=== PATIENT | female | born 1995 | race Two or more races ===

== ENCOUNTER 2017-11-08 07:52 | Emergency (ER) | payer MEDICAID ==
[2017-11-08 07:59] VITALS: BP 121/65
[2017-11-08] MEDS ORDERED: HYDROCODONE/ACETAMINOPHEN 5-325 MG TABLET PO ONE (08:29)
--- NOTE | 2017-11-08 08:30 | ER Document Report ---
ED Oral Problem - General Chief Complaint: Toothache Stated Complaint: TOOTH/MOUTH PAIN Time Seen by Provider: 11/08/17 08:12 Mode of Arrival: Ambulatory Information source: Patient Notes: Patient is a 21-year-old female who presents to the ER today for right lower tooth pain stating that her wisdom tooth on the right lower side is growing and cricket. Patient has a dentist appointment but has not for approximately 3 weeks she complains of some pain and swelling to this area. Patient also complains of a sore throat but is unclear if it is coming from the tooth or not. Patient states that this started yesterday and is difficult for her to swallow foods due to the pain. She denies any swelling of the throat or difficulty swallowing her saliva. She denies any fevers or chills, drainage from anywhere. TRAVEL OUTSIDE OF THE [place] IN LAST 30 DAYS: No - Related Data Allergies/Adverse Reactions: No Known Allergies Allergy (Unverified 11/08/17 07:53) Past Medical History - General Information source: Patient - Social History Smoking Status: Current Every Day Smoker Chew tobacco use (# tins/day): No Frequency of alcohol use: None Drug Abuse: None Family History: Reviewed & Not Pertinent Patient has suicidal ideation: No Patient has homicidal ideation: No Renal/ Medical History: Denies: Hx Peritoneal Dialysis Review of Systems - Review of Systems Constitutional: No symptoms reported EENT: See HPI Cardiovascular: No symptoms reported Respiratory: No symptoms reported Gastrointestinal: No symptoms reported Genitourinary: No symptoms reported Female Genitourinary: No symptoms reported Musculoskeletal: No symptoms reported Skin: No symptoms reported Hematologic/Lymphatic: No symptoms reported Neurological/Psychological: No symptoms reported Physical Exam - Vital signs Vitals: Temp Pulse Resp BP Pulse Ox 98.9 F 79 16 121/65 98 11/08/17 07:57 11/08/17 07:57 11/08/17 07:57 11/08/17 07:57 11/08/17 07:57 - Notes Notes: PHYSICAL EXAMINATION: GENERAL: Uncomfortable appearing, but in no acute distress. HEAD: Atraumatic, normocephalic. EYES: Pupils equal round and reactive to light, extraocular movements intact, sclera anicteric, conjunctiva are normal. ENT: ear canals without erythema or foreign body, TMs pearly minor with good bony landmarks, nares patent, oropharynx clear without exudates. Moist mucous membranes. Poor dentition, tenderness to lower right wisdom tooth at the gumline, mild edema surrounding, no obvious fluctuance or induration NECK: Normal range of motion, supple without lymphadenopathy LUNGS: CTAB and equal. No wheezes rales or rhonchi. HEART: Regular rate and rhythm without murmurs EXTREMITIES: Normal range of motion, no pitting edema. No cyanosis. NEUROLOGICAL: Cranial nerves grossly intact. Normal sensory/motor exams. PSYCH: Normal mood, normal affect. SKIN: Warm, Dry, normal turgor, no rashes or lesions noted Course - Re-evaluation Re-evalutation: 11/09/17 10:59 Patient started on amoxicillin and advised to follow-up with her dentist. - Vital Signs Vital signs: Temp Pulse Resp BP Pulse Ox 98.9 F 79 16 121/65 98 11/08/17 07:57 11/08/17 07:57 11/08/17 07:57 11/08/17 07:57 11/08/17 07:57 Discharge - Discharge Clinical Impression: Pain, dental Condition: Stable Disposition: HOME, SELF-CARE Additional Instructions: Return immediately for any new or worsening symptoms. Follow up with dentist, call tomorrow to make followup appointment. Prescriptions: Amoxicillin 500 mg PO TID #30 capsule Ibuprofen [Motrin 800 mg Tablet] 800 mg PO Q8H PRN #30 tab PRN Reason: Forms: Return to Work
== END 2017-11-08 08:51 | disposition home or self-care (01) ==
LOC: ER 07:52
DX: K08.89 Other specified disorders of teeth and supporting structures (principal); J02.9 Acute pharyngitis, unspecified; F17.200 Nicotine dependence, unspecified, uncomplicated
CPT/HCPCS: 99282

== ENCOUNTER 2018-06-12 13:03 | Emergency (ER) | payer MEDICAID ==
[2018-06-12 13:10] VITALS: BP 121/74
[2018-06-12] MEDS ORDERED: CYCLOBENZAPRINE HCL 10 MG TABLET PO ONE (13:41)
--- NOTE | 2018-06-12 13:47 | ER Document Report ---
ED Neck/Back Problem - General Chief Complaint: Back Pain Stated Complaint: BACK PAIN Time Seen by Provider: 06/12/18 13:18 Mode of Arrival: Ambulatory Information source: Patient Notes: 22-year-old female presented to ED for complaint of mid back pain for the last 2 years. She states she has spasms off and on and became worse yesterday. She states that there is stiffness and spasm every time she moves or lifts her child who is about 2 years old. Patient is alert oriented respirations regular and unlabored speaking in full sentences walking with a even steady gait. TRAVEL OUTSIDE OF THE [place] IN LAST 30 DAYS: No - HPI Patient complains to provider of: Pain, Upper back Onset: Other - 2 years worse for the last couple days Onset: Chronic Timing: Waxing and waning Quality of pain: Cramping Severity: Severe Pain Level: 5 Recent injury: No Associated symptoms: Like prior neck/back pain, Upper back pain. denies: Constipation, Fever, Incontinence, Radiation to arm, Radiation to chest, Radiation to leg, Sensory loss, Sweaty, Unable to urinate, Lower back pain Exacerbated by: Movement of trunk Relieved by: Nothing Similar symptoms previously: Yes Recently seen / treated by doctor: No - Related Data Allergies/Adverse Reactions: No Known Allergies Allergy (Verified 06/12/18 13:03) Past Medical History - General Information source: Patient - Social History Smoking Status: Current Every Day Smoker Cigarette use (# per day): Yes - 1/2 pack/day Chew tobacco use (# tins/day): No Smoking Education Provided: Yes - 4 minutes Frequency of alcohol use: None Drug Abuse: None Lives with: Spouse/Significant other Family History: Reviewed & Not Pertinent Patient has suicidal ideation: No Patient has homicidal ideation: No - Past Medical History Cardiac Medical History: Reports: None Pulmonary Medical History: Reports: None EENT Medical History: Reports: None Neurological Medical History: Reports: None Endocrine Medical History: Reports: None Renal/ Medical History: Reports: None Malignancy Medical History: Reports: None GI Medical History: Reports: None Musculoskeletal Medical History: Reports Hx Muscle Spasm, Reports Other - Back spasms for more than 2 years Skin Medical History: Reports None Psychiatric Medical History: Reports: None Traumatic Medical History: Reports: None Infectious Medical History: Reports: None Surgical Hx: Negative Past Surgical History: Reports: None, Hx Section Review of Systems - Review of Systems Constitutional: No symptoms reported EENT: No symptoms reported Cardiovascular: No symptoms reported Respiratory: No symptoms reported Gastrointestinal: No symptoms reported Genitourinary: No symptoms reported Female Genitourinary: No symptoms reported Musculoskeletal: Back pain, Muscle pain, Muscle stiffness Skin: No symptoms reported Hematologic/Lymphatic: No symptoms reported Neurological/Psychological: No symptoms reported -: Yes All other systems reviewed and negative Physical Exam - Vital signs Vitals: Temp Pulse Resp BP Pulse Ox 99.0 F 82 16 121/74 99 06/12/18 13:08 06/12/18 13:08 06/12/18 13:08 06/12/18 13:08 06/12/18 13:08 Interpretation: Normal - General General appearance: Appears well, Alert - HEENT Head: Normocephalic, Atraumatic Eyes: Normal Pupils: PERRL - Respiratory Respiratory status: No respiratory distress Chest status: Nontender Breath sounds: Normal Chest palpation: Normal - Cardiovascular Rhythm: Regular Heart sounds: Normal auscultation Murmur: No - Abdominal Inspection: Normal Distension: No distension Bowel sounds: Normal Tenderness: Nontender Organomegaly: No organomegaly - Back Back: Normal, Tender - Bilateral upper back pain. No: Deformity/step-off, CVA tenderness, Vertebra tenderness, Scars, Scoliosis, Wounds - Extremities General upper extremity: Normal inspection, Nontender, Normal color, Normal ROM, Normal temperature General lower extremity: Normal inspection, Nontender, Normal color, Normal ROM, Normal temperature, Normal weight bearing. No: Tia's sign - Neurological Neuro grossly intact: Yes Cognition: Normal Orientation: AAOx4 Jackson Coma Scale Eye Opening: Spontaneous Leticia Coma Scale Verbal: Oriented Leticia Coma Scale Motor: Obeys Commands Jackson Coma Scale Total: 15 Speech: Normal Motor strength normal: LUE, RUE, LLE, RLE Sensory: Normal - Psychological Associated symptoms: Normal affect, Normal mood - Skin Skin Temperature: Warm Skin Moisture: Dry Skin Color: Normal Course - Vital Signs Vital signs: Temp Pulse Resp BP Pulse Ox 99.0 F 82 16 121/74 99 06/12/18 13:08 06/12/18 13:08 06/12/18 13:08 06/12/18 13:08 06/12/18 13:08 Discharge - Discharge Clinical Impression: chronic upper back spasms, chronic lower back spasms Condition: Stable Disposition: HOME, SELF-CARE Instructions: Family Physicians / Practices Additional Instructions: Myalagia (Muscle Pain) Myalgia is pain in the muscles. We use the word myalgia to describe muscle pain where there's no history of injury, no known muscle disease, and the muscles are normal to examination. Myalgias can be a symptom of an acute illness, such as influenza, hepatitis, or any viral illness, especially with fever. Sometimes the muscle pain comes before any other symptoms. Myalgia can also be an early symptom of inflammatory muscle disease, such as lupus. If myalgia is accompanied by an acute illness that explains the muscle pain, then no further testing needs to be done. When there's no clear reason for the pain, tests may be done to see if there's an inflammatory or other disease of the muscles. The usual treatment for myalgias is anti-inflammatory medication, such as ibuprofen. Muscle aches may be soothed with a heating pad or hot compress. If muscles remain painful for more than a few days, you'll need testing and followup. Return if a muscle becomes swollen, red, or severely painful. MUSCLE RELAXERS: Muscle relaxing medications are usually prescribed for acute muscle spasm or injury to the neck and back. They are often combined with antiinflammatory pain medication for increased relief. You may stop the muscle relaxer when the pain and stiffness have improved. Start the medication again if spasms recur. Muscle relaxers may cause drowsiness, especially with the first dose. Do not operate machinery or drive while under the effects of the medication. Most muscle relaxers last up to 24 hours. Do not combine the medication with alcohol. ICE PACKS: Apply ice packs frequently against the painful area. Many different schedules are recommended, such as "20 minutes on, 20 minutes off" or "one hour ice, two hours rest." If you need to work, you may need to go longer between ice treatments. You should plan to have the area ice packed AT LEAST one fourth of the time. The ice should be applied over the wrap, tape, or splint, or over a layer of cloth -- not directly against the skin. Some ice bags have a built-in cloth and can be put directly on the skin. WARM PACKS: After approximately two days, apply gentle heat (such as a heating pad or hot water bottle) for about 20 to 30 minutes about every two hours -- at least four times daily. Warmth and elevation will help you make a more rapid recovery, and will ease the pain considerably. Do not use HOT heat, and never apply heat for longer than 30 minutes. The continuous heat can invisibly damage skin and muscles -- even when no burn is seen on the surface. Damaged muscles can make you MORE sore. Ibuprofen Ibuprofen is an excellent, safe drug for pain control. In addition, it has potent antiinflammatory effects which are beneficial, especially in the treatment of injuries, arthritis, or tendonitis. It's best to take ibuprofen with food. Persons with ulcer disease or allergy to aspirin should notify their physician of this before taking ibuprofen. Take the medication exactly as prescribed. Don't take additional doses unless instructed to do so by your doctor. If you develop wheezing, shortness of breath, hives, faintness, stomach pain, vomiting, or dark black stools, return for re-evaluation at once. Exercise Program for the Shoulder Since the shoulder moves in so many directions, the joint attachment is weak. Muscles provide most of the stability to the shoulder. You must exercise your shoulder to prevent painful instability or stiffening. PASSIVE - These may be begun within a few days of the injury. While standing, lean forward, allowing the arm to hang down towards the floor. Move the arm in small circles while slowly twisting your chest towards and away from the hanging arm. Do this for one minute. ACTIVE - These may be performed when the doctor gives permission. Begin with the arms at the sides. Raise the arms forward (shoulder's width apart) until they reach shoulder level. Then slowly swing both arms back until they are aiming straight out away from each other. Then bring them forward again, and finally, lower them to your sides. Repeat 20 to 30 times. As you improve, put weights in your hands for the exercise. Start with one pound, and work up to 10 pounds. Never use more than is comfortable. Athletes may work up to 30 pounds. Stretching Exercises for the Back The physician has recommended that you begin stretching exercises for your back. These are often used even while the back is painful. However, you should notify the physician if the activities seem to increase your pain. PELVIC TILT: Lie flat on your back with knees bent. Tighten your stomach and buttock muscles so it flattens your lower back against the floor. Hold 10 seconds. Repeat 10 times, twice daily. KNEE RAISE: Lying on the back with knees bent, raise one knee to your chest, then the other. Hold both knees against the chest 10 seconds, then lower one knee at a time. Repeat 10 times, twice daily. PARTIAL TRUNK RAISE: Lie face down, arms at your sides. Keeping your waist on the floor, use your arms raise your chest up. Support yourself on your elbows for 30 seconds. Repeat twice daily, increasing the time to two minutes as you recover. FOLLOW-UP CARE: If you have been referred to a physician for follow-up care, call the physicians office for an appointment as you were instructed or within the next two days. If you experience worsening or a significant change in your symptoms, notify the physician immediately or return to the Emergency Department at any time for re-evaluation. Prescriptions: Cyclobenzaprine HCl [Flexeril 10 mg Tablet] 10 mg PO TIDP PRN #15 tab PRN Reason: Ibuprofen [Motrin 800 mg Tablet] 800 mg PO Q8H PRN #30 tab PRN Reason: Forms: Smoking Cessation Education
== END 2018-06-12 13:50 | disposition home or self-care (01) ==
LOC: ER 13:03
DX: R25.2 Cramp and spasm (principal); M54.89 Other dorsalgia; F17.210 Nicotine dependence, cigarettes, uncomplicated; Z71.6 Tobacco abuse counseling
CPT/HCPCS: 99406; 99283; J3490

== ENCOUNTER 2018-09-17 19:48 | Emergency (ER) | payer MEDICAID ==
[2018-09-17 20:14] VITALS: BP 129/68
[2018-09-17] MEDS ORDERED: ACETAMINOPHEN 325 MG TABLET PO ONE (21:11)
--- NOTE | 2018-09-17 21:14 | ER Document Report ---
ED Medical Screen (RME) - General Chief Complaint: Abdominal Pain Stated Complaint: ABDOMINAL PAIN Time Seen by Provider: 09/17/18 21:09 Notes: 22F with no past medical history presents for epigastric/right upper quadrant pain since yesterday. Pain is worse after drinking or eating and described as sharp. She said the pain is constant but that does make it worse, nothing makes it better. She denies fevers or chills, complains of nausea with no vomiting, last bowel movement this morning. EXAM: Well-appearing, lungs clear to auscultation in all garza, regular rate and rhythm no murmurs, limited abdominal exam but right upper quadrant and epigastric tenderness to palpation I have greeted and performed a rapid initial assessment of this patient. A comprehensive ED assessment and evaluation of the patient, analysis of test results and completion of medical decision making process will be conducted by an additional ED providers. TRAVEL OUTSIDE OF THE [place] IN LAST 30 DAYS: No - Related Data Allergies/Adverse Reactions: No Known Allergies Allergy (Verified 09/17/18 21:04) Past Medical History Renal/ Medical History: Denies: Hx Peritoneal Dialysis Musculoskeltal Medical History: Reports Hx Muscle Spasm Past Surgical History: Reports: Hx Section Physical Exam - Vital signs Vitals: Temp Pulse Resp BP Pulse Ox 98.8 F 88 18 129/68 H 100 09/17/18 20:12 09/17/18 20:12 09/17/18 20:12 09/17/18 20:12 09/17/18 20:12 Course - Vital Signs Vital signs: Temp Pulse Resp BP Pulse Ox 98.8 F 88 18 129/68 H 100 09/17/18 20:12 09/17/18 20:12 09/17/18 20:12 09/17/18 20:12 09/17/18 20:12
[2018-09-17] MEDS ORDERED: LIDOCAINE 2% VISCOUS SOLN 20 ML UDCUP PO ONE (21:20)
[2018-09-17] MEDS ORDERED: METOCLOPRAMIDE HCL ORAL SOLN 10 MG/10 ML UDCUP PO ONE (21:20)
[2018-09-17] MEDS ORDERED: MAG HYDROX/AL HYDROX/SIMETH SUSP 30 ML UDCUP PO ONE (21:20)
[2018-09-17 21:51] LABS: ABSOLUTE BASOPHILS # (AUTO) 0.1 10^3/uL (0.0-0.2); ABSOLUTE EOSINOPHILS # (AUTO) 0.3 10^3/uL (0.0-0.6); ABSOLUTE MONOCYTES (AUTO) 0.6 10^3/uL (0.1-1.4); ABSOLUTE NEUT (AUTO) 4.9 10^3/uL (1.7-8.2); EOSINOPHILS % (AUTO) 3.6 % (0-6); HEMATOCRIT 40.8 % (36.0-47.0); HEMOGLOBIN 13.6 g/dL (12.0-15.5); LYMPHOCYTES % (AUTO) 33.8 % (13-45); MEAN CORPUSCULAR HEMOGLOBIN 29.8 pg (27.0-33.4); MEAN CORPUSCULAR HGB CONC 33.5 g/dL (32.0-36.0); MEAN CORPUSCULAR VOLUME 89 fl (80-97); MONOCYTES % (AUTO) 6.6 % (3-13); PLATELET COUNT 305 10^3/uL (150-450); RED BLOOD COUNT 4.58 10^6/uL (3.72-5.28); TOTAL CELLS COUNTED % (AUTO) 100 %; WHITE BLOOD COUNT 8.9 10^3/uL (4.0-10.5)
[2018-09-17 22:11] LABS: ALANINE AMINOTRANSFERASE 27 U/L (9-52); ALBUMIN 4.6 g/dL (3.5-5.0); ALKALINE PHOSPHATASE 75 U/L (38-126); ANION GAP 11 (5-19); ASPARTATE AMINO TRANSFERASE 22 U/L (14-36); BILIRUBIN,DIRECT 0.2 mg/dL (0.0-0.4); BILIRUBIN,TOTAL 0.2 mg/dL (0.2-1.3); BLOOD UREA NITROGEN 7 mg/dL (7-20); CALCIUM 9.9 mg/dL (8.4-10.2); CARBON DIOXIDE 24 mmol/L (22-30); CHLORIDE 106 mmol/L (98-107); GLUCOSE 88 mg/dL (75-110); LIPASE 69.5 U/L (23-300); POTASSIUM 4.6 mmol/L (3.6-5.0); SODIUM 140.9 mmol/L (137-145); TOTAL PROTEIN 7.4 g/dL (6.3-8.2)
[2018-09-17 22:51] LABS: APPEARANCE,URINE CLEAR; BILIRUBIN,URINE NEGATIVE (NEGATIVE); COLOR,URINE YELLOW; GLUCOSE, URINE NEGATIVE (NEGATIVE); KETONES,URINE NEGATIVE (NEGATIVE); LEUKOCYTE ESTERASE,URINE NEGATIVE (NEGATIVE); NITRITE,URINE NEGATIVE (NEGATIVE); PROTEIN,URINE NEGATIVE (NEGATIVE); URINE SPECIFIC GRAVITY 1.025; UROBILINOGEN,URINE NEGATIVE mg/dL (<2.0)
== END 2018-09-18 00:07 | disposition left against medical advice (07) ==
LOC: ER 19:48
DX: R10.13 Epigastric pain (principal); R10.11 Right upper quadrant pain
CPT/HCPCS: 99281; 36415; 83690; 85025; 81025; 80053; 81001; J3490 ×4

== ENCOUNTER 2018-09-19 04:54 | Observation (INO) | payer MEDICAID ==
[2018-09-19 06:06] LABS: ABSOLUTE BASOPHILS # (AUTO) 0.1 10^3/uL (0.0-0.2); ABSOLUTE EOSINOPHILS # (AUTO) 0.4 10^3/uL (0.0-0.6); ABSOLUTE LYMPHOCYTES (AUTO) 3.1 10^3/uL (0.5-4.7); ABSOLUTE MONOCYTES (AUTO) 0.7 10^3/uL (0.1-1.4); ABSOLUTE NEUT (AUTO) 4.6 10^3/uL (1.7-8.2); BASOPHILS % (AUTO) 0.9 % (0-2); EOSINOPHILS % (AUTO) 4.5 % (0-6); HEMATOCRIT 40.1 % (36.0-47.0); HEMOGLOBIN 13.5 g/dL (12.0-15.5); LYMPHOCYTES % (AUTO) 35.2 % (13-45); MEAN CORPUSCULAR HEMOGLOBIN 29.9 pg (27.0-33.4); MEAN CORPUSCULAR HGB CONC 33.8 g/dL (32.0-36.0); MEAN CORPUSCULAR VOLUME 88 fl (80-97); MONOCYTES % (AUTO) 7.7 % (3-13); PLATELET COUNT 285 10^3/uL (150-450); RED BLOOD COUNT 4.54 10^6/uL (3.72-5.28); SEGMENTED NEUTROPHILS % (AUTO) 51.7 % (42-78); TOTAL CELLS COUNTED % (AUTO) 100 %; WHITE BLOOD COUNT 8.9 10^3/uL (4.0-10.5)
[2018-09-19] MEDS ORDERED: FENTANYL CITRATE INJ/PF 100 MCG/2 ML AMPUL IV ONE (06:14)
[2018-09-19 06:23] LABS: ALANINE AMINOTRANSFERASE 19 U/L (9-52); ALBUMIN 4.5 g/dL (3.5-5.0); ALKALINE PHOSPHATASE 73 U/L (38-126); ANION GAP 12 (5-19); ASPARTATE AMINO TRANSFERASE 25 U/L (14-36); BILIRUBIN,DIRECT 0.2 mg/dL (0.0-0.4); BILIRUBIN,TOTAL 0.3 mg/dL (0.2-1.3); BLOOD UREA NITROGEN 6 mg/dL (7-20); CALCIUM 9.4 mg/dL (8.4-10.2); CARBON DIOXIDE 23 mmol/L (22-30); CHLORIDE 107 mmol/L (98-107); GLUCOSE 94 mg/dL (75-110); LIPASE 48.6 U/L (23-300); POTASSIUM 3.9 mmol/L (3.6-5.0); SODIUM 141.7 mmol/L (137-145); TOTAL PROTEIN 7.5 g/dL (6.3-8.2)
[2018-09-19] MEDS ORDERED: LIDOCAINE 2% VISCOUS SOLN 20 ML UDCUP PO ONE (06:24)
[2018-09-19 06:26] LABS: APPEARANCE,URINE CLEAR; BILIRUBIN,URINE NEGATIVE (NEGATIVE); COLOR,URINE YELLOW; GLUCOSE, URINE NEGATIVE (NEGATIVE); KETONES,URINE NEGATIVE (NEGATIVE); LEUKOCYTE ESTERASE,URINE NEGATIVE (NEGATIVE); NITRITE,URINE NEGATIVE (NEGATIVE); PROTEIN,URINE NEGATIVE (NEGATIVE); URINE SPECIFIC GRAVITY 1.015; UROBILINOGEN,URINE NEGATIVE mg/dL (<2.0)
--- NOTE | 2018-09-19 06:54 | RADIOLOGY REPORT (SQ) ---
EXAM DESCRIPTION: US ABDOMEN LIMITED COMPLETED DATE/TME: 09/19/2018 06:13 CLINICAL HISTORY: 22 years, Female, RUQ pa[place] COMPARISON: None. TECHNIQUE: Limited right upper quadrant ultrasound LIMITATIONS: None. FINDINGS: Echogenic appearance to the liver consistent with fatty infiltrative change. No gallstones or gallbladder wall thickening. CBD measures 1.3 mm. The visualized pancreas, abdominal aorta, right kidney are unremarkable. There is no ascites IMPRESSION: Fatty infiltrative change to the liver. Remainder is unremarkable copyright 2011 [employer]- All Rights Reserved
[2018-09-19] MEDS ORDERED: MAG HYDROX/AL HYDROX/SIMETH SUSP 30 ML UDCUP PO ONE (07:01)
--- NOTE | 2018-09-19 07:05 | ER Document Report ---
ED General - General Chief Complaint: Abdominal Pain Stated Complaint: ABDOMINAL PAIN Time Seen by Provider: 09/19/18 06:12 Notes: 22-year-old female with mild obesity presents with epigastric pain burning and pressure-like for 3 days with nausea and vomiting intermittently. The pain does not radiate. She is never had this before. She denies a history of known GERD or gallstones. She has no lower abdominal symptoms or GI or symptoms. TRAVEL OUTSIDE OF THE [place] IN LAST 30 DAYS: No - Related Data Allergies/Adverse Reactions: No Known Allergies Allergy (Verified 09/17/18 21:04) Past Medical History - Social History Smoking Status: Unknown if Ever Smoked Family History: Reviewed & Not Pertinent Patient has suicidal ideation: No Patient has homicidal ideation: No Renal/ Medical History: Denies: Hx Peritoneal Dialysis Musculoskeletal Medical History: Reports Hx Muscle Spasm Past Surgical History: Reports: Hx Section Review of Systems - Review of Systems Notes: REVIEW OF SYSTEMS GEN: Denies fever, chills, weight loss ENT: Denies sore throat, nasal discharge, ear pain EYES: Denies blurry vision, eye pain, discharge CV: Denies chest pain, palpitations, edema RESP: Denies cough, shortness of breath, wheezing GI: Pain and nausea MSK: Denies joint pain/swelling, edema, SKIN: Denies rash, skin lesions LYMPH: Denies swollen glands/lymph nodes NEURO: Denies headache, focal weakness or numbness, dizziness PSYCH: Denies depression, suicidal or homicidal ideation PHYSICAL EXAMINATION General: No acute distress, well-nourished Head: Atraumatic, normocephalic ENT: Mouth normal, oropharynx moist, no exudates or tonsillar enlargement Eyes: Conjunctiva normal, pupils equal, lids normal Neck: No JVD, supple, no guarding CVS: Normal rate, regular rhythm, no murmurs Resp: No resp distress, equal and normal breath sounds bilaterally GI: Nondistended, soft, epigastric tenderness to palpation, negative Overton sign, no rebound or guarding Ext: No deformities, no edema, normal range of motion in upper and lower ext Back: No CVA or midline TTP Skin: No rash, warm Lymphatic: No lymphadeopathy noted Neuro: Awake, alert. Face symmetric. GCS 15. Physical Exam - Vital signs Vitals: Temp Pulse Resp BP Pulse Ox 97.8 F 105 H 20 168/110 H 100 09/19/18 05:00 09/19/18 05:00 09/19/18 05:00 09/19/18 05:00 09/19/18 05:00 Course - Re-evaluation Re-evalutation: 09/19/18 07:05 Epigastric pain most concerning for gastritis and GERD. No right upper quadrant symptoms. Labs are normal. Will give GI cocktail and check right upper quadrant ultrasound to make sure there is no acute pathology there. Patient was given fentanyl and a GI cocktail and felt better. Her ultrasound shows fatty liver. Her labs are normal. She has no other scores of pain identified, is clinically improved, and [place] Her has insurance via the and her follow-up is expected to go through [facility] a few weeks. I did discuss a GERD related diet to give her proper return precautions. I have discussed with the patient there likely diagnosis, aftercare plan, follow-up plans and my usual and customary return precautions. They verbalized understanding of this. 09/19/18 08:12 - Vital Signs Vital signs: Temp Pulse Resp BP Pulse Ox 97.8 F 105 H 20 168/110 H 100 09/19/18 05:00 09/19/18 05:00 09/19/18 05:00 09/19/18 05:00 09/19/18 05:00 - Laboratory Result Diagrams: 09/19/18 05:52 09/19/18 05:52 Laboratory results interpreted by me: 09/19/18 09/19/18 05:52 06:08 BUN 6 L Urine Blood LARGE H - Diagnostic Test Radiology reviewed: Image reviewed, Reports reviewed Discharge - Discharge Clinical Impression: Fatty liver Gastritis Qualifiers: Gastritis type: unspecified gastritis Chronicity: acute Gastritis bleeding: without bleeding Qualified Code(s): K29.00 - Acute gastritis without bleeding Condition: Good Disposition: HOME, SELF-CARE Instructions: Abdominal Pain ([facility]), Gastritis ([facility]) Additional Instructions: You have some fatty liver, which is a result of diet and is reversible. Please contact your primary care regarding dietary adjustments. This may be partially why you are having abdominal pain. Prescriptions: Ondansetron HCl [Zofran 4 mg Tablet] 1 - 2 tab PO Q4H PRN #10 tablet PRN Reason: Pantoprazole Sodium [Protonix [address] Tablet] 40 mg PO QAM #30 tablet.
[2018-09-19] MEDS ORDERED: HYDROMORPHONE HCL INJ/PF 2 MG/ML AMPULE IV ONE (07:18)
--- NOTE | 2018-09-19 09:15 | RADIOLOGY REPORT (SQ) ---
EXAM DESCRIPTION: CT ABD/PELVIS WITH IV ONLY COMPLETED DATE/TIME: 09/19/2018 8:57 am REASON FOR STUDY: RLQ lozano/RUQ pain COMPARISON: None. TECHNIQUE: CT scan of the abdomen and pelvis performed using helical scanning technique with dynamic intravenous contrast injection. No oral contrast. Images reviewed with lung, soft tissue, and bone windows. Reconstructed coronal and sagittal MPR images reviewed. Delayed images for evaluation of the urinary system also acquired. All images stored on PACS. All CT scanners at this facility use dose modulation, iterative reconstruction, and/or weight based d osing when appropriate to reduce radiation dose to as low as reasonably achievable (ALARA). [facility]: Dose Right [facility]: CareDose [facility]: Dose Right [facility]: Teradose 4D [facility]: IntelliGeneScan CONTRAST TYPE AND DOSE: contrast/concentration: Isovue 350.00 mg/ml; Total Contrast Delivered: 100.0 ml; Total Saline Delivered: 70.0 ml RENAL FUNCTION: None required. The patient is less than 50 years old. RADIATION DOSE: CT Rad equipment meets quality standard of care and radiation dose reduction techniq ues were employed. CTDIvol: 15.4 - 18.7 mGy. DLP: 1845 mGy-cm.. LIMITATIONS: None. FINDINGS: LOWER CHEST: No significant findings. No nodules or infiltrates. LIVER: Normal size. No masses. No dilated ducts. SPLEEN: Normal size. No focal lesions. PANCREAS: No masses. No significant calcifications. No adjacent inflammation or peripancreatic fluid collections. Pancreatic duct not dilated. GALLBLADDER: No identified stones by CT criteria. No inflammatory changes to suggest cholecystitis. ADRENAL GLANDS: No significant masses or asymmetry. RIGHT KIDNEY AND URETER: No solid masses. There are multiple cortical defects of the right kidney hauser ggestive of prior infectious insult. No significant calcifications. No hydronephrosis or hydrouret er. LEFT KIDNEY AND URETER: No solid masses. No significant calcifications. No hydronephrosis or hydr oureter. AORTA AND VESSELS: No aneurysm. No dissection. Renal arteries, SMA, celiac without stenosis. RETROPERITONEUM: No retroperitoneal adenopathy, hemorrhage or masses. BOWEL AND PERITONEAL CAVITY: No masses or inflammatory changes. No free fluid or peritoneal masses. APPENDIX: The appendix is enlarged measuring 1.0 cm at its midportion although otherwise normal in ap pearance without evidence of adjacent inflammatory stranding, free fluid, or adenopathy. PELVIS: No mass. No free fluid. Normal bladder. ABDOMINAL WALL: No masses. No hernias. BONES: No significant or acute findings. OTHER: No other significant finding. IMPRESSION: 1. The appendix is enlarged measuring 1.0 cm at its midportion although otherwise normal in appearance without evidence of adjacent inflammatory stranding, free fluid, or adenopathy. Early developing appendicitis is not strictly excluded in the setting of acute right lower quadrant pain. Follow-up imaging at 24-48 hours may be performed if there is ongoing suspicion for appendicitis. 2. There are multiple cortical defects of the right kidney suggestive prior infectious insult. No e vidence of calculi or other urinary tract abnormality. TECHNICAL DOCUMENTATION: JOB ID: [id number] Quality ID # [id number]: Final reports with documentation of one or more dose reduction techniques (e.g., Au tomated exposure control, adjustment of the mA and/or kV according to patient size, use of iterative reconstruction technique) 2010 [employer]- All Rights Reserved Reading location - IP/workstation name: [email or web address]
[2018-09-19] MEDS ORDERED: DEXTROSE 50%-WATER 25 GM/50 ML DISP.SYRIN IV PRN ×2 (12:07)
[2018-09-19] MEDS ORDERED: GLUCAGON,HUMAN RECOMB 1 MG INJ SUBCUT PRN (12:07)
[2018-09-19] MEDS ORDERED: DEXTROSE 40% GEL 15 GM TUBE PO PRN ×2 (12:07)
--- NOTE | 2018-09-19 12:07 | PDOC H&P ---
History of Present Illness Patient complains of: Abdominal pain History of Present Illness: MALIA REYES is a 22 year old female presenting with 3-day history of epigastric abdominal pain with associated nausea. Pain is worsened with p.o. intake. She denies any prior history of this sort of pain. She denies any laurie rrhea. She has had no hematemesis no signs or symptoms of gastrointestinal bleeding. No fever. With the persistence of her pain she came into the ER. She does not complain of any specific right lower quadrant abdominal pain. Mostly in the epigastric region. Patient does have a history of pyelonephritis in the past. No hematuria currently. She is currently on the last day of her menstrual period. Past Medical History Medical History: None Renal/ Medical History: Reports: Other - History of pyelonephritis in the remote past Past Surgical History Past Surgical History: Reports: Section Social History Smoking Status: Current Every Day Smoker Frequency of Alcohol Use: Rare Hx Recreational Drug Use: No Family History Family History: Reviewed & Not Pertinent Parental Family History Reviewed: Yes Children Family History Reviewed: Yes Sibling(s) Family History Reviewed.: Yes Medication/Allergy Home Medications: Amoxicillin 500 mg PO TID #30 capsule 11/08/17 Ibuprofen [Motrin 800 mg Tablet] 800 mg PO Q8H PRN #30 tab 11/08/17 Cyclobenzaprine HCl [Flexeril 10 mg Tablet] 10 mg PO TIDP PRN #15 tab 06/12/18 Ibuprofen [Motrin 800 mg Tablet] 800 mg PO Q8H PRN #30 tab 06/12/18 Ondansetron HCl [Zofran 4 mg Tablet] 1 - 2 tab PO Q4H PRN #10 tablet 09/19/18 Pantoprazole Sodium [Protonix [address] Tablet] 40 mg PO QAM #30 tablet.dr 09/19/18 Allergies/Adverse Reactions: No Known Allergies Allergy (Verified 09/17/18 21:04) Review of Systems All systems: reviewed and no additional remarkable complaints except as stated Gastrointestinal: PRESENT: as per HPI Physical Exam Vital Signs: Temp Pulse Resp BP Pulse Ox 97.8 F 105 H 20 168/110 H 98 09/19/18 05:00 09/19/18 05:00 09/19/18 05:00 09/19/18 05:00 09/19/18 06:16 Intake & Output 09/18/18 09/19/18 09/20/18 06:59 06:59 06:59 Weight 93 kg General appearance: PRESENT: no acute distress, cooperative Neck exam: PRESENT: other - Supple with no tenderness and no masses. Respiratory exam: PRESENT: clear to auscultation caleb Cardiovascular exam: PRESENT: RRR GI/Abdominal exam: PRESENT: other - Soft, nondistended, tender in the epigastric region with no guarding. Mild right lower quadrant tenderness with deep palpation but not nearly as tender as the epigastric region. Extremities exam: PRESENT: other - No swelling and no tenderness Neurological exam: PRESENT: alert, awake Psychiatric exam: PRESENT: appropriate affect Skin exam: PRESENT: warm Results Laboratory Results: 09/19/18 05:52 09/19/18 05:52 09/19/18 09/19/18 09/19/18 05:52 05:52 06:08 WBC 8.9 RBC 4.54 Hgb 13.5 Hct 40.1 MCV 88 MCH 29.9 MCHC 33.8 RDW 13.0 Plt Count 285 Seg Neutrophils % 51.7 Lymphocytes % 35.2 Monocytes % 7.7 Eosinophils % 4.5 Basophils % 0.9 Absolute Neutrophils 4.6 Absolute Lymphocytes 3.1 Absolute Monocytes 0.7 Absolute Eosinophils 0.4 Absolute Basophils 0.1 Sodium 141.7 Potassium 3.9 Chloride 107 Carbon Dioxide 23 Anion Gap 12 BUN 6 L Creatinine 0.74 Est GFR ( Amer) > 60 Est GFR (Non-Af Amer) > 60 Glucose 94 Calcium 9.4 Total Bilirubin 0.3 AST 25 ALT 19 Alkaline Phosphatase 73 Total Protein 7.5 Albumin 4.5 Lipase 48.6 Urine Color YELLOW Urine Appearance CLEAR Urine pH 6.0 Ur Specific [place] 1.015 Urine Protein NEGATIVE Urine Glucose (UA) NEGATIVE Urine Ketones NEGATIVE Urine Blood LARGE H Urine Nitrite NEGATIVE Ur Leukocyte Esterase NEGATIVE Urine WBC (Auto) 4 Urine RBC (Auto) 19 Impressions: Abdomen Ultrasound 09/19/18 06:13 IMPRESSION: Fatty infiltrative change to the liver. Remainder is unremarkable copyright 2011 [employer]- All Rights Reserved Abdomen/Pelvis CT 09/19/18 08:20 IMPRESSION: 1. The appendix is enlarged measuring 1.0 cm at its midportion although otherwise normal in appearance without evidence of adjacent inflam matory stranding, free fluid, or adenopathy. Early developing appendicitis is not strictly excluded in the setting of acute right lower quadrant pain. Follow-up imaging at 24-48 hours may be performed if there is ongoing suspicion for appendicitis. 2. There are multiple cortical defects of the right kidney suggestive prior infectious insult. No evidence of calculi or other urinary tract abnormality. Assessment & Plan - Diagnosis (1) Abdominal pain Qualifiers: Abdominal location: epigastric Qualified Code(s): R10.13 - Epigastric pain Is this a current diagnosis for this admission?: Yes Plan: Likely gastritis but cannot exclude appendicitis. I have reviewed the CT scan with our radiologist and that she does have an appendix that measures 1 cm at the midportion but there is absolutely no inflammatory changes. She has had symptoms for 3 days and I would expect a fairly significant CT scan findings of appendicitis at this point if she had appendicitis. Furthermore she has mostly epigastric abdominal tenderness with minimal right lower quadrant tenderness even with deep palpation. I will admit the patient for observation. Make her n.p.o. and on IV fluids and on proton pump inhibitor. Will likely need an upper endoscopy to confirm diagnosis of gastritis or peptic ulcer disease during this hospital stay.
[2018-09-19] MEDS: NORMAL SALINE 1000 ML 1,000 ML IV PRN ×2 (12:31→22:19)
[2018-09-19] MEDS: PANTOPRAZOLE SODIUM 40 MG VIAL IV SCH ×2 (12:31→22:29)
[2018-09-19] MEDS: HYDROMORPHONE HCL INJ/PF 2 MG/ML AMPULE IV PRN ×2 (17:13→22:24)
[2018-09-19 18:52] LABS: ABSOLUTE BASOPHILS # (AUTO) 0.1 10^3/uL (0.0-0.2); ABSOLUTE EOSINOPHILS # (AUTO) 0.3 10^3/uL (0.0-0.6); ABSOLUTE LYMPHOCYTES (AUTO) 2.6 10^3/uL (0.5-4.7); ABSOLUTE MONOCYTES (AUTO) 0.5 10^3/uL (0.1-1.4); ABSOLUTE NEUT (AUTO) 3.9 10^3/uL (1.7-8.2); BASOPHILS % (AUTO) 1.1 % (0-2); EOSINOPHILS % (AUTO) 4.4 % (0-6); HEMATOCRIT 36.7 % (36.0-47.0); HEMOGLOBIN 12.3 g/dL (12.0-15.5); LYMPHOCYTES % (AUTO) 35.5 % (13-45); MEAN CORPUSCULAR HEMOGLOBIN 29.5 pg (27.0-33.4); MEAN CORPUSCULAR HGB CONC 33.6 g/dL (32.0-36.0); MEAN CORPUSCULAR VOLUME 88 fl (80-97); MONOCYTES % (AUTO) 6.9 % (3-13); PLATELET COUNT 249 10^3/uL (150-450); RED BLOOD COUNT 4.17 10^6/uL (3.72-5.28); RED CELL DISTRIBUTION WIDTH 12.8 % (11.5-14.0); SEGMENTED NEUTROPHILS % (AUTO) 52.1 % (42-78); TOTAL CELLS COUNTED % (AUTO) 100 %; WHITE BLOOD COUNT 7.4 10^3/uL (4.0-10.5)
--- NOTE | 2018-09-19 21:30 | PDOC PROGRESS REPORT ---
Subjective Progress Note for:: 09/19/18 Subjective:: Abdominal pain has improved. Very hungry. Reason For Visit: ABDOMINAL PAIN Physical Exam Vital Signs: Temp Pulse Resp BP Pulse Ox 98.5 F 55 L 18 97/63 L 100 09/19/18 19:17 09/19/18 19:17 09/19/18 19:17 09/19/18 19:17 09/19/18 19:17 Intake & Output 09/18/18 09/19/18 09/20/18 06:59 06:59 06:59 Intake Total 294 Balance 294 Weight 93 kg 93 kg General appearance: PRESENT: no acute distress, cooperative Respiratory exam: PRESENT: clear to auscultation caleb Cardiovascular exam: PRESENT: RRR GI/Abdominal exam: PRESENT: other - Soft, nondistended, mild diffuse abdominal tenderness to palpation without peritoneal signs. Results Laboratory Results: 09/19/18 18:18 09/19/18 05:52 09/19/18 09/19/18 09/19/18 05:52 05:52 05:52 WBC 8.9 RBC 4.54 Hgb 13.5 Hct 40.1 MCV 88 MCH 29.9 MCHC 33.8 RDW 13.0 Plt Count 285 Seg Neutrophils % 51.7 Lymphocytes % 35.2 Monocytes % 7.7 Eosinophils % 4.5 Basophils % 0.9 Absolute Neutrophils 4.6 Absolute Lymphocytes 3.1 Absolute Monocytes 0.7 Absolute Eosinophils 0.4 Absolute Basophils 0.1 Sodium 141.7 Potassium 3.9 Chloride 107 Carbon Dioxide 23 Anion Gap 12 BUN 6 L Creatinine 0.74 Est GFR ( Amer) > 60 Est GFR (Non-Af Amer) > 60 Glucose 94 Calcium 9.4 Total Bilirubin 0.3 AST 25 ALT 19 Alkaline Phosphatase 73 Total Protein 7.5 Albumin 4.5 Lipase 48.6 Serum HCG, Qual NEGATIVE Urine Color Urine Appearance Urine pH Ur Specific Anza Urine Protein Urine Glucose (UA) Urine Ketones Urine Blood Urine Nitrite Ur Leukocyte Esterase Urine WBC (Auto) Urine RBC (Auto) 09/19/18 09/19/18 06:08 18:18 WBC 7.4 RBC 4.17 Hgb 12.3 Hct 36.7 MCV 88 MCH 29.5 MCHC 33.6 RDW 12.8 Plt Count 249 Seg Neutrophils % 52.1 Lymphocytes % 35.5 Monocytes % 6.9 Eosinophils % 4.4 Basophils % 1.1 Absolute Neutrophils 3.9 Absolute Lymphocytes 2.6 Absolute Monocytes 0.5 Absolute Eosinophils 0.3 Absolute Basophils 0.1 Sodium Potassium Chloride Carbon Dioxide Anion Gap BUN Creatinine Est GFR ( Amer) Est GFR (Non-Af Amer) Glucose Calcium Total Bilirubin AST ALT Alkaline Phosphatase Total Protein Albumin Lipase Serum HCG, Qual Urine Color YELLOW Urine Appearance CLEAR Urine pH 6.0 Ur Specific [place] 1.015 Urine Protein NEGATIVE Urine Glucose (UA) NEGATIVE Urine Ketones NEGATIVE Urine Blood LARGE H Urine Nitrite NEGATIVE Ur Leukocyte Esterase NEGATIVE Urine WBC (Auto) 4 Urine RBC (Auto) 19 Impressions: Abdomen Ultrasound 09/19/18 06:13 IMPRESSION: Fatty infiltrative change to the liver. Remainder is unremarkable copyright 2011 [employer]- All Rights Reserved Abdomen/Pelvis CT 09/19/18 08:20 IMPRESSION: 1. The appendix is enlarged measuring 1.0 cm at its midportion although otherwise normal in appearance without evidence of adjacent inflammatory stranding, free fluid, or adenopathy. Early developing appendicitis is not strictly excluded in the setting of acute right lower quadrant pain. Follow-up imaging at 24-48 hours may be performed if there is ongoing suspicion for appendicitis. 2. There are multiple cortical defects of the right kidney suggestive prior infectious insult. No evidence of calculi or other urinary tract abnormality. Assessment & Plan - Diagnosis (1) Abdominal pain Qualifiers: Abdominal location: epigastric Qualified Code(s): R10.13 - Epigastric pain Is this a current diagnosis for this admission?: Yes Plan: Still having some abdominal pain and abdominal tenderness and I cannot entirely exclude appendicitis but appears unlikely with normal white blood cell count and no progression of her symptoms although she still has some tenderness. Will reexamine in the morning.
[2018-09-20] MEDS: HYDROMORPHONE HCL INJ/PF 2 MG/ML AMPULE IV PRN ×3 (05:14→23:21)
[2018-09-20 06:17] LABS: HEMATOCRIT 37.8 % (36.0-47.0); HEMOGLOBIN 12.8 g/dL (12.0-15.5); MEAN CORPUSCULAR HEMOGLOBIN 29.7 pg (27.0-33.4); MEAN CORPUSCULAR HGB CONC 33.8 g/dL (32.0-36.0); MEAN CORPUSCULAR VOLUME 88 fl (80-97); PLATELET COUNT 201 10^3/uL (150-450); RED BLOOD COUNT 4.31 10^6/uL (3.72-5.28); RED CELL DISTRIBUTION WIDTH 12.8 % (11.5-14.0); WHITE BLOOD COUNT 6.4 10^3/uL (4.0-10.5)
[2018-09-20 06:33] LABS: ANION GAP 11 (5-19); BLOOD UREA NITROGEN 6 mg/dL (7-20); CALCIUM 8.8 mg/dL (8.4-10.2); CARBON DIOXIDE 21 mmol/L (22-30); CHLORIDE 108 mmol/L (98-107); GLUCOSE 70 mg/dL (75-110); POTASSIUM 4.2 mmol/L (3.6-5.0)
[2018-09-20] MEDS ORDERED: MIDAZOLAM 2 MG/2 ML INJ ONE (08:32)
[2018-09-20] MEDS: NORMAL SALINE 1000 ML 1,000 ML IV PRN ×2 (08:32→15:39)
[2018-09-20] MEDS ORDERED: HYDROMORPHONE HCL INJ/PF 2 MG/ML AMPULE ONE (08:32)
[2018-09-20] MEDS ORDERED: PROPOFOL INJ 200 MG/20 ML VIAL IV ONE (08:32)
[2018-09-20] MEDS ORDERED: FENTANYL CITRATE INJ/PF 250 MCG/5 ML AMPULE ONE (08:32)
[2018-09-20] MEDS ORDERED: BUPIVACAINE HCL 0.25 % INJ/PF (2.5 MG/1 ML) 30 ML VIAL ONE (08:49)
[2018-09-20] MEDS ORDERED: PIPERACILLIN SODIUM/TAZOBACTAM 3.375 GM in NORMAL SALINE 100 ML IV ONE (09:30)
[2018-09-20] MEDS: PANTOPRAZOLE SODIUM 40 MG VIAL IV SCH ×2 (09:39→23:06)
[2018-09-20] MEDS ORDERED: DIPHENHYDRAMINE HCL 50 MG/ML VIAL IV PRN (09:42)
[2018-09-20] MEDS ORDERED: MORPHINE SULFATE 10 MG/ML INJ IV PRN (09:42)
[2018-09-20] MEDS ORDERED: MEPERIDINE HCL/PF INJ 25 MG/1 ML DISP.SYRIN IV PRN (09:42)
[2018-09-20] MEDS ORDERED: FENTANYL CITRATE INJ/PF 100 MCG/2 ML AMPUL IV PRN ×3 (09:42)
[2018-09-20] MEDS ORDERED: PROMETHAZINE HCL INJ 25 MG/1 ML VIAL IV PRN (09:42)
--- NOTE | 2018-09-20 10:50 | OPERATIVE REPORT E ---
Operative Report NAME: MALIA REYES : 1995 AGE: 22Y DATE OF SURGERY: 09/20/2018 ROOM: 534 PREOPERATIVE DIAGNOSIS: Acute appendicitis. POSTOPERATIVE DIAGNOSIS: Acute appendicitis with adhesions. OPERATION: 1. Laparoscopic appendectomy. 2. Laparoscopic lysis of adhesions. SURGEON: VILMA SELF M.D. ANESTHESIA: General. INDICATIONS: This is a 22-year-old female complaining of abdominal pains in primarily the epigastric area on admission. DESCRIPTION OF PROCEDURE: After adequate general anesthesia, the patient was placed in a supine position and the abdomen prepped and draped in the usual sterile fashion. Appropriate time out was then called. Next, an infraumbilical incision was then made and the fascia divided. The Iain trocar was inserted through the fascia to the abdominal cavity and CO2 insufflated to a pressure of 15 mmHg. The camera was then inserted and two other trocars were placed, a 5 mm in the suprapubic and a 12 mm in the left lower quadrant, under direct vision with the camera. Next, the appendix was then identified and noted to be just mildly inflamed close to the distal end. She has an adhesive band just below and lateral to the umbilicus. Next, the appendix was then lifted up and the mesoappendix divided with the harmonic nikki. The patient appendix was then divided with the EndoGIA 30 mm. The appendix was noted to be just slightly enlarged and inflamed. It was then placed in an Endobag and pulled out through the umbilical port. The appendiceal stump was noted to be dry. Next, the adhesion was subsequently grasped and pulled down and subsequently divided with the use of harmonic nikki close to the peritoneum. Again, adequate hemostasis was noted. No other adhesions were noted. No other abnormalities were noted. All the trocars were allowed to come out and all the CO2 allowed to come out through the trocar sites. The infraumbilical fascia defect was then closed with a [id number] suture using 0 Vicryl and the 2 stay sutures that were placed earlier were tied over each other over the fascial defect for better closure. Next, anesthesia was infiltrated along the fascia. All the skin incisions were then closed with running subcuticular closure using 4-0 Vicryl undyed. Sterile dressings were placed over the operative sites. Needle, instrument, and sponge counts were all correct. The patient tolerated the procedure well. Estimated blood loss was no more than 10 mL. The patient was brought to the recovery room, extubated, in satisfactory condition. DICTATING PHYSICIAN: VILMA SELF M.D. [id number] PHY#: [id number] ID: [id number] JOB#: [id number] ACCT: [id number] cc:VILMA SELF M.D. >
[2018-09-20] MEDS ORDERED: FENTANYL CITRATE INJ/PF 100 MCG/2 ML AMPUL ONE (10:59)
[2018-09-20] MEDS ORDERED: TRAMADOL HCL 50 MG TABLET PO PRN (12:49)
[2018-09-20] MEDS ORDERED: ONDANSETRON HCL INJ/PF 4 MG/2 ML SDV IV PRN (12:50)
[2018-09-20] MEDS ORDERED: GLYCOPYRROLATE 1 MG/5 ML SYRINGE ONE (15:23)
[2018-09-20] MEDS ORDERED: DEXAMETHASONE SOD PHOSPHATE INJ 4 MG/1 ML VIAL ONE (15:23)
[2018-09-20] MEDS ORDERED: NEOSTIGMINE METHYLSULFATE 10 MG/10 ML VIAL ONE (15:23)
[2018-09-20] MEDS ORDERED: SUCCINYLCHOLINE CHLORIDE INJ 200 MG/10 ML VIAL ONE (15:23)
[2018-09-20] MEDS ORDERED: ROCURONIUM BROMIDE INJ 50 MG/5 ML VIAL IV ONE (15:23)
[2018-09-20] MEDS ORDERED: ONDANSETRON HCL INJ/PF 4 MG/2 ML SDV ONE (15:23)
[2018-09-20] MEDS: PIPERACILLIN SODIUM/TAZOBACTAM 3.375 GM in NORMAL SALINE 100 ML IV SCH ×2 (15:39→23:07)
[2018-09-20] MEDS: DIPHENHYDRAMINE HCL 50 MG/ML VIAL IV PRN (16:12)
[2018-09-20] MEDS: KETOROLAC TROMETHAMINE INJ/PF 30 MG/1 ML SDV IV SCH ×2 (17:39)
[2018-09-21] MEDS: PIPERACILLIN SODIUM/TAZOBACTAM 3.375 GM in NORMAL SALINE 100 ML IV SCH ×2 (03:28→09:59)
[2018-09-21] MEDS: HYDROMORPHONE HCL INJ/PF 2 MG/ML AMPULE IV PRN (03:29)
[2018-09-21 04:31] LABS: ABSOLUTE BASOPHILS # (AUTO) 0.1 10^3/uL (0.0-0.2); ABSOLUTE EOSINOPHILS # (AUTO) 0.1 10^3/uL (0.0-0.6); ABSOLUTE MONOCYTES (AUTO) 0.7 10^3/uL (0.1-1.4); ABSOLUTE NEUT (AUTO) 8.5 10^3/uL (1.7-8.2); BASOPHILS % (AUTO) 0.5 % (0-2); EOSINOPHILS % (AUTO) 0.8 % (0-6); HEMATOCRIT 34.3 % (36.0-47.0); HEMOGLOBIN 11.4 g/dL (12.0-15.5); LYMPHOCYTES % (AUTO) 17.9 % (13-45); MEAN CORPUSCULAR HEMOGLOBIN 29.2 pg (27.0-33.4); MEAN CORPUSCULAR HGB CONC 33.3 g/dL (32.0-36.0); MEAN CORPUSCULAR VOLUME 88 fl (80-97); MONOCYTES % (AUTO) 6.4 % (3-13); PLATELET COUNT 253 10^3/uL (150-450); RED BLOOD COUNT 3.91 10^6/uL (3.72-5.28); RED CELL DISTRIBUTION WIDTH 12.9 % (11.5-14.0); SEGMENTED NEUTROPHILS % (AUTO) 74.4 % (42-78); TOTAL CELLS COUNTED % (AUTO) 100 %; WHITE BLOOD COUNT 11.4 10^3/uL (4.0-10.5)
[2018-09-21] MEDS: DIPHENHYDRAMINE HCL 50 MG/ML VIAL IV PRN (06:52)
[2018-09-21] MEDS: KETOROLAC TROMETHAMINE INJ/PF 30 MG/1 ML SDV IV SCH (06:53)
[2018-09-21] MEDS: PANTOPRAZOLE SODIUM 40 MG VIAL IV SCH (09:59)
[2018-09-21 10:08] VITALS: BP 123/41
--- NOTE | 2018-09-21 16:50 | DISCHARGE SUMMARY E ---
Discharge Summary NAME: MALIA REYES : 1995 AGE: 22Y ADMITTED: 09/19/2018 DISCHARGED: 09/21/2018 FINAL DIAGNOSIS: Early Acute Appendicitis Peritoneal Adhesion PROCEDURES: Laparoscopic appendectomy and laparoscopic lysis of adhesions, 09/20/2018. Surgeon: Lexa Callejas MD HOSPITAL COURSE: This is a 22-year-old female complaining of upper abdominal pains. She was admitted on 09/19/2018 and had a CAT scan, which showed dilated appendix, but no definite acute appendicitis. On 09/20/2018, patient noted to have tenderness more in both lower quadrants. Because of the possibility of acute appendicitis, patient was taken to the operating room for laparoscopic appendectomy. She was found to have a likely early acute appendicitis with an adhesive band just below the left side of the umbilicus. Appendectomy was carried out, as well as lysis of this adhesions. Postoperatively, patient did very well. She was able to tolerate a regular diet on 09/21/2018 and also her pains are minimal. She said her original pains have subsided and now just has some incisional pains. She was then discharged improved, to be followed up in the surgical clinic in 2 weeks. She was advised not to do lifting more than 10 pounds for the next 2 weeks. She can just take Tylenol as needed p.r.n. for pain. She can shower. DICTATING PHYSICIAN: LEXA CALLEJAS M.D. [id number] PHY#: [id number] ID: [id number] JOB#: [id number] ACCT: [id number] cc:Teresa GALINDO M.D. > MTDD
== END 2018-09-21 10:20 | disposition home or self-care (01) ==
LOC: ER 04:54 → EH 11:08 → INTOOBSV 11:08 → 5 15:14
PROVIDERS: ADMIT Surgery; ATTEND Surgery
PROC: 0DTJ4ZZ Resection of Appendix, Percutaneous Endoscopic Approach (ICD-10-PCS; principal; 2018-09-20 09:00)
DX: K35.80 Unspecified acute appendicitis (principal); K66.0 Peritoneal adhesions (postprocedural) (postinfection); F17.200 Nicotine dependence, unspecified, uncomplicated; K76.0 Fatty (change of) liver, not elsewhere classified; E66.9 Obesity, unspecified; Z87.448 Personal history of other diseases of urinary system
CPT/HCPCS: 99285; 96374; 96375; 36415 ×3; 83690; 84703; 85025 ×2; 85027; 80048; 80053; 81001; 88304 ×2; 76705; 74177; 44970; G0378 ×4; J2250; J3490 ×5; J1100; J1200 ×2; J3010 ×3; J1885 ×2; J2710; J1170 ×3; S0164 ×2; J0330; J2405; S0020; J7050 ×2; J7030 ×2; J2704; J2543 ×2; 840

== ENCOUNTER 2019-11-30 13:15 | Emergency (ER) | payer MEDICAID, OTHER ==
--- NOTE | 2019-11-30 13:49 | ER Document Report ---
ED Medical Screen (RME) - General Chief Complaint: Vaginal Bleeding Stated Complaint: ABDOMINAL PAIN,VAGINAL BLEEDING Time Seen by Provider: 11/30/19 13:46 Mode of Arrival: Ambulatory Information source: Patient Notes: 23-year-old female presents to ED for vaginal bleeding. She states her last menstrual period was October 15. She is 4 para 1. She did have her appendix taken out last year. She states she had an ectopic when she was 13 or 14. She has had a . She is alert oriented respirations regular nonlabored speaking in full sentences. She does use a drill cigarette. I have greeted and performed a rapid initial assessment of this patient. A comprehensive ED assessment and evaluation of the patient, analysis of test results and completion of medical decision making process will be conducted by an additional ED providers. TRAVEL OUTSIDE OF THE [place] IN LAST 30 DAYS: No - Related Data Allergies/Adverse Reactions: No Known Allergies Allergy (Verified 09/17/18 21:04) Home Medications: prenantal, iron supp. Past Medical History - Social History Frequency of alcohol use: None Drug Abuse: None Renal/ Medical History: Denies: Hx Peritoneal Dialysis Musculoskeltal Medical History: Reports Hx Muscle Spasm Past Surgical History: Reports: Hx Appendectomy, Hx Section, Hx Gy necologic Surgery - ectopic Physical Exam - Vital signs Vitals: Temp Pulse Resp BP Pulse Ox 99.6 F 107 H 20 143/71 H 100 11/30/19 13:20 11/30/19 13:20 11/30/19 13:20 11/30/19 13:20 11/30/19 13:20 Course - Vital Signs Vital signs: Temp Pulse Resp BP Pulse Ox 99.6 F 107 H 20 143/71 H 100 11/30/19 13:20 11/30/19 13:20 11/30/19 13:20 11/30/19 13:20 11/30/19 13:20
[2019-11-30 14:48] LABS: APPEARANCE,URINE CLEAR; BILIRUBIN,URINE NEGATIVE (NEGATIVE); COLOR,URINE YELLOW; GLUCOSE, URINE NEGATIVE (NEGATIVE); KETONES,URINE NEGATIVE (NEGATIVE); LEUKOCYTE ESTERASE,URINE NEGATIVE (NEGATIVE); NITRITE,URINE NEGATIVE (NEGATIVE); PROTEIN,URINE NEGATIVE (NEGATIVE); URINE SPECIFIC GRAVITY 1.009; UROBILINOGEN,URINE NEGATIVE mg/dL (<2.0)
--- NOTE | 2019-11-30 15:09 | RADIOLOGY REPORT (SQ) ---
EXAM DESCRIPTION: U/S OB TRANSVAGINAL W/O DOP IMAGES COMPLETED DATE/TIME: 11/30/2019 2:55 pm REASON FOR STUDY: Early with bleeding lmp October 15 COMPARISON: None. TECHNIQUE: Transvaginal static and realtime grayscale images acquired of the pelvis. Additional kasie cted spectral and color Doppler images recorded. All images stored on PACs. CLINICAL AGE: 6 weeks 3 days BHCG: Not available. LIMITATIONS: None. FINDINGS: UTERUS: No visualized intrauterine . RIGHT ADNEXA: Normal ovary with normal vascular flow. No adnexal free fluid. No adnexal masses. LEFT ADNEXA: Normal ovary with normal vascular flow. No adnexal free fluid. No adnexal masses. FREE FLUID: None. OTHER: No other significant finding. IMPRESSION: NO VISUALIZED INTRA- OR EXTRAUTERINE . bHCG LEVEL NOT AVAILABLE FOR CORRELATION WITH US FINDINGS. ECTOPIC CANNOT BE EXCLUDED. FOLLOW-UP ULTRASOUND AND SERIAL BHCG LEVELS STRONGLY RECOMMENDED TO ACCURATELY ASSESS STATU S. TECHNICAL DOCUMENTATION: JOB ID: [id number] 2010 [employer]- All Rights Reserved Reading location - IP/workstation name: [email or web address]
[2019-11-30 15:13] LABS: ABSOLUTE BASOPHILS # (AUTO) 0.1 10^3/uL (0.0-0.2); ABSOLUTE EOSINOPHILS # (AUTO) 0.4 10^3/uL (0.0-0.6); ABSOLUTE LYMPHOCYTES (AUTO) 2.1 10^3/uL (0.5-4.7); ABSOLUTE MONOCYTES (AUTO) 0.7 10^3/uL (0.1-1.4); ABSOLUTE NEUT (AUTO) 6.9 10^3/uL (1.7-8.2); BASOPHILS % (AUTO) 0.9 % (0-2); EOSINOPHILS % (AUTO) 3.7 % (0-6); HEMATOCRIT 41.7 % (36.0-47.0); MEAN CORPUSCULAR HEMOGLOBIN 30.4 pg (27.0-33.4); MEAN CORPUSCULAR HGB CONC 33.6 g/dL (32.0-36.0); MEAN CORPUSCULAR VOLUME 90 fl (80-97); MONOCYTES % (AUTO) 6.8 % (3-13); PLATELET COUNT 281 10^3/uL (150-450); RED BLOOD COUNT 4.61 10^6/uL (3.72-5.28); RED CELL DISTRIBUTION WIDTH 13.7 % (11.5-14.0); SEGMENTED NEUTROPHILS % (AUTO) 67.6 % (42-78); TOTAL CELLS COUNTED % (AUTO) 100 %; WHITE BLOOD COUNT 10.1 10^3/uL (4.0-10.5)
[2019-11-30 15:38] LABS: ALBUMIN 4.5 g/dL (3.5-5.0); ALKALINE PHOSPHATASE 69 U/L (38-126); ANION GAP 10 (5-19); ASPARTATE AMINO TRANSFERASE 24 U/L (14-36); BILIRUBIN,TOTAL 0.2 mg/dL (0.2-1.3); BLOOD UREA NITROGEN 7 mg/dL (7-20); CALCIUM 9.1 mg/dL (8.4-10.2); CARBON DIOXIDE 22 mmol/L (22-30); CHLORIDE 103 mmol/L (98-107); GLUCOSE 86 mg/dL (75-110); POTASSIUM 4.2 mmol/L (3.6-5.0); TOTAL PROTEIN 7.5 g/dL (6.3-8.2)
--- NOTE | 2019-11-30 16:08 | ER Document Report ---
ED General - General Chief Complaint: Vaginal Bleeding Stated Complaint: ABDOMINAL PAIN,VAGINAL BLEEDING Time Seen by Provider: 11/30/19 13:46 Mode of Arrival: Ambulatory Notes: Patient is a 23-year-old female who is G4, P1, currently unknown week of gestation who has had one prior ectopic around 13 or 14 years old and 1 miscarriage in the past who presents to the emergency department chief complaint of vaginal bleeding and cramping. She states that her last normal menstrual period was October 15. She states that Evelyn had intercourse last on 06 November. States that she started to have some scant spotting but did not think much of it. She states that just recently it increased slightly but has resolved again. She states it was associated with some mild cramping infraumbilical area. She was concerned given her history of ectopic so she decided to come for evaluation. She has not had any care yet. She is taking vitamins. TRAVEL OUTSIDE OF THE [place] IN LAST 30 DAYS: No - Related Data Allergies/Adverse Reactions: No Known Allergies Allergy (Verified 09/17/18 21:04) Home Medications: prenantal, iron supp. Past Medical History - General Information source: Patient - Social History Smoking Status: Never Smoker Frequency of alcohol use: None Drug Abuse: None Family History: Reviewed & Not Pertinent Renal/ Medical History: Denies: Hx Peritoneal Dialysis Musculoskeletal Medical History: Reports Hx Muscle Spasm Past Surgical History: Reports: Hx Appendectomy, Hx Section, Hx Gynecologic Surgery - ectopic Review of Systems - Review of Systems Constitutional: denies: Fever EENT: denies: Throat pain Cardiovascular: denies: Chest pain Respiratory: denies: Short of breath Gastrointestinal: denies: Abdomen distended, Abdominal pain Genitourinary: denies: Pain Female Genitourinary: , Vaginal bleeding Musculoskeletal: denies: Back pain Skin: denies: Change in color Hematologic/Lymphatic: denies: Easy bleeding Neurological/Psychological: denies: Headaches Physical Exam - Vital signs Vitals: Temp Pulse Resp BP Pulse Ox 99.6 F 107 H 20 143/71 H 100 11/30/19 13:20 11/30/19 13:20 11/30/19 13:20 11/30/19 13:20 11/30/19 13:20 - General General appearance: Appears well, Alert In distress: None - Respiratory Respiratory status: No respiratory distress Chest status: Nontender Breath sounds: Normal Chest palpation: Normal - Cardiovascular Rhythm: Regular Heart sounds: Normal auscultation - Abdominal Inspection: Normal Distension: No distension Bowel sounds: Normal Tenderness: Nontender Organomegaly: No organomegaly - Back Back: No: CVA tenderness - Neurological Neuro grossly intact: Yes Cognition: Normal Orientation: AAOx4 - Psychological Associated symptoms: Normal affect, Normal mood - Skin Skin Temperature: Warm Skin Moisture: Dry Skin Color: Normal Course - Re-evaluation Re-evalutation: 11/30/19 16:09 Patient with a quant hCG of 625. Consistent with very early versus p oorly developing or ectopic. It is too early to tell at this point. The ultrasound was inconclusive which we would expect at these numbers. Patient has a small finding consistent with UTI on urinalysis. She will be treated with Macrobid. She will follow-up in 48 hours here for repeat hCG testing and reevaluation. Given her history of ectopic discussed the importance of her returning sooner should she have any worsening bleeding or pain. Discussed the importance of follow-up with the FINISH MACHINE TENDER for appropriate care. She verbalized understood and agreed. - Vital Signs Vital signs: Temp Pulse Resp BP Pulse Ox 99.6 F 107 H 20 143/71 H 100 11/30/19 13:20 11/30/19 13:20 11/30/19 13:20 11/30/19 13:20 11/30/19 13:20 - Laboratory Result Diagrams: 11/30/19 15:03 11/30/19 15:03 Laboratory results interpreted by me: 11/30/19 11/30/19 14:18 15:03 Sodium 135.2 L Beta HCG, Quant 625.08 H Urine Blood LARGE H Urine Ascorbic Acid 20 H Discharge - Discharge Clinical Impression: Vaginal bleeding Qualifiers: Weeks of gestation: less than 8 weeks Qualified Code(s): Z3A.01 - Less than 8 weeks gestation of UTI (urinary tract infection) Qualifiers: Urinary tract infection type: site unspecified Hematuria presence: without hematuria Qualified Code(s): N39.0 - Urinary tract infection, site not specified Condition: Stable Disposition: HOME, SELF-CARE Instructions: ([facility]) Additional Instructions: At this point it is unclear if you are in the process of miscarrying, with early ectopic or with an early normal healthy . Please return here in 48 hours for repeat level testing. Please return here sooner should you develop any new or worsening symptoms. Be sure to follow-up with the FINISH MACHINE TENDER for continued care. Prescriptions: Nitrofurantoin Monohyd/M-Cryst [Macrobid 100 mg Capsule] 100 mg PO BID #20 cap
[2019-11-30 16:09] VITALS: BP 136/74
== END 2019-11-30 16:12 | disposition home or self-care (01) ==
LOC: ER 13:15
DX: O46.91 Antepartum hemorrhage, unspecified, first trimester (principal); O23.41 Unspecified infection of urinary tract in pregnancy, first trimester; O26.891 Other specified pregnancy related conditions, first trimester; R10.33 Periumbilical pain; Z3A.01 Less than 8 weeks gestation of pregnancy; Z79.899 Other long term (current) drug therapy
CPT/HCPCS: 36415; 76817; 80053; 81001; 84702; 85025; 86900; 86901; 87086; 99284

== ENCOUNTER 2019-12-02 13:46 | Emergency (ER) | payer OTHER ==
[2019-12-02 13:50] VITALS: BP 128/66
--- NOTE | 2019-12-02 14:09 | ER Document Report ---
ED GI/ - General Chief Complaint: Other Stated Complaint: REPEAT LABS Time Seen by Provider: 12/02/19 14:01 Primary Care Provider: [facility] [Provider Group] - Follow up as needed Mode of Arrival: Ambulatory Information source: Patient Notes: 23-year-old female presented to ED for repeat hCG. She was seen here 2 days ago with a low hCG and no visible on ultrasound. She is a of blood type and did not receive her RhoGam on her last visit. I have reordered the work-up so she can get at this visit. We will recheck the hCG level. TRAVEL OUTSIDE OF THE [place] IN LAST 30 DAYS: No - HPI Patient complains to provider of: Vaginal bleeding Onset: Other Timing/Duration: Gradual Quality of pain: No pain Severity in ED: None Pain Level: Denies Vaginal bleeding (Compared to normal period): Similar Rh factor: neg Associated symptoms: Other - Patient was seen 2 days ago with a negative ultrasound with negative Rh factor but did not receive the RhoGam return today for repeat hCG levels. They have dropped from 2 days ago. She is continuing to have vaginal bleeding Exacerbated by: Denies Relieved by: Denies Similar symptoms previously: Yes Recently seen / treated by doctor: Yes - Related Data Allergies/Adverse Reactions: No Known Allergies Allergy (Verified 09/17/18 21:04) Past Medical History - General Information source: Patient - Social History Smoking Status: Never Smoker Lives with: Family Family History: Reviewed & Not Pertinent Patient has suicidal ideation: No Patient has homicidal ideation: No - Past Medical History Cardiac Medical History: Reports: None Pulmonary Medical History: Reports: None EENT Medical History: Reports: None Neurological Medical History: Reports: None Endocrine Medical History: Reports: None Renal/ Medical History: Reports: None Malignancy Medical History: Reports: None GI Medical History: Reports: None Musculoskeletal Medical History: Reports Hx Muscle Spasm Skin Medical History: Reports None Psychiatric Medical History: Reports: None Traumatic Medical History: Reports: None Infectious Medical History: Reports: None Past Surgical History: Reports: Hx Appendectomy, Hx Section, Hx Gynecologic Surgery - ectopic - Immunizations Immunizations up to date: Yes Review of Systems - Review of Systems Constitutional: No symptoms reported EENT: No symptoms reported Cardiovascular: No symptoms reported Respiratory: No symptoms reported Gastrointestinal: No symptoms reported Genitourinary: No symptoms reported Female Genitourinary: No symptoms reported, Vaginal bleeding - hCG did drop Musculoskeletal: No symptoms reported Skin: No symptoms reported Hematologic/Lymphatic: No symptoms reported Neurological/Psychological: No symptoms reported -: Yes All other systems reviewed and negative Physical Exam - Vital signs Vitals: Temp Pulse Resp BP Pulse Ox 98.7 F 106 H 16 128/66 H 99 12/02/19 13:50 12/02/19 13:50 12/02/19 13:50 12/02/19 13:50 12/02/19 13:50 Interpretation: Normal - General General appearance: Appears well, Alert - HEENT Head: Normocephalic, Atraumatic Eyes: Normal Pupils: PERRL - Respiratory Respiratory status: No respiratory distress Chest status: Nontender Breath sounds: Normal Chest palpation: Normal - Cardiovascular Rhythm: Regular Heart sounds: Normal auscultation Murmur: No - Abdominal Inspection: Normal Distension: No distension Bowel sounds: Normal Tenderness: Nontender Organomegaly: No organomegaly - Back Back: Normal, Nontender - Extremities General upper extremity: Normal inspection, Nontender, Normal color, Normal ROM, Normal temperature General lower extremity: Normal inspection, Nontender, Normal color, Normal ROM, Normal temperature, Normal weight bearing. No: Tia's sign - Neurological Neuro grossly intact: Yes Cognition: Normal Orientation: AAOx4 [place] Coma Scale Eye Opening: Spontaneous [place]icia Coma Scale Verbal: Oriented [place] Coma Scale Motor: Obeys Commands Leticia Coma Scale Total: 15 Speech: Normal Motor strength normal: LUE, RUE, LLE, RLE Sensory: Normal - Psychological Associated symptoms: Normal affect, Normal mood - Skin Skin Temperature: Warm Skin Moisture: Dry Skin Color: Normal Course - Re-evaluation Re-evalutation: 12/02/19 16:25 Patient was treated with RhoGam due to her negative blood type with vaginal bleeding and . The ultrasound 2 days ago did not show a viable . Her levels did drop from 625-526. She was given a copy of her lab work to follow-up with your VEGETABLE CANNER. Verbalized understanding and agreement treatment plan and patient was discharged home. - Vital Signs Vital signs: Temp Pulse Resp BP Pulse Ox 98.7 F 106 H 16 128/66 H 99 12/02/19 13:50 12/02/19 13:50 12/02/19 13:50 12/02/19 13:50 12/02/19 13:50 - Laboratory Result Diagrams: 12/02/19 14:42 Laboratory results interpreted by me: 12/02/19 14:42 Beta HCG, Quant 526.45 H Discharge - Discharge Clinical Impression: Miscarriage Condition: Stable Disposition: HOME, SELF-CARE Additional Instructions: Miscarriage You have had a miscarriage (medically called a "spontaneous "). The miscarriage occurred because the fetus did not develop normally. There is nothing you did to cause it, and nothing you could have done to prevent it. About one in four ends in miscarriage. You should rest in bed for two or three days. As there is some risk of infection of the uterus, you should not have intercourse for one week (or until okayed by your physician). You might not have a period for six to eight weeks. You should not become again for at least three months -- the uterus requires time to get back to normal. Call the doctor or return for re-examination if there is heavy or persistent vaginal bleeding, fever, foul discharge, continued cramping pains, or abdominal pain. RHOGAM: Rhogam is given to a woman who has Rh negative blood type when she has vaginal bleeding during her or at the time of the delivery of her baby. If a woman is Rh negative, her body will form antibodies against red blood cells from an Rh positive fetus or baby that mix with her blood during a threatened or actual miscarraige or delivery. These antibodies will remain in the woman's body forever and will attack any future Rh positive fetus preventing it from developing into a normal baby. Rhogam is given to prevent the mother's body from forming these antibodies. FOLLOW-UP CARE: If you have been referred to a physician for follow-up care, call the physicians office for an appointment as you were instructed or within the next two days. If you experience worsening or a significant change in your symptoms (very heavy bleeding with large clots of blood, passage of tissue, more severe abdominal / pelvic pain or cramping, feeling faint or severe weakness, fever, etc.), notify the physician immediately or return to the Emergency Department at any time for re-evaluation. OBSTETRIC-GYNECOLOGIC (OB-BUSINESS DEVELOPMENT) PHYSICIANS [facility] [place]: [facility] [address] [place] [address] [phone] For active duty and dependents diagnosed with a threatened or miscarriage, you should follow up in the following manner: Standard patients who have a local civilian provider should follow up with that provider. Patients of the Family Practice Clinic should call your Team Nurse at 8:00 am the following morning for further instructions. If you are neither a Standard patient nor a patient of the Family Practice Clinic, you should follow up at the [facility] ([facility]). Patients already enrolled in the [facility] OB Clinic, Prime patients not assigned to the Family Practice Clinic, and Active Duty patients not assigned to Family Practice Clinic should report to the [facility] Lab at 8:00 am the next morning that the [facility] OB Clinic is open and then you will be seen in the OB Clinic at 11:00 am. Forms: Elevated Blood Pressure Referrals: [facility] [Provider Group] - Follow up as needed
[2019-12-02 15:00] LABS: ABSOLUTE BASOPHILS # (AUTO) 0.1 10^3/uL (0.0-0.2); ABSOLUTE EOSINOPHILS # (AUTO) 0.3 10^3/uL (0.0-0.6); ABSOLUTE MONOCYTES (AUTO) 0.6 10^3/uL (0.1-1.4); ABSOLUTE NEUT (AUTO) 5.3 10^3/uL (1.7-8.2); BASOPHILS % (AUTO) 1.1 % (0-2); EOSINOPHILS % (AUTO) 3.9 % (0-6); HEMATOCRIT 39.1 % (36.0-47.0); HEMOGLOBIN 13.6 g/dL (12.0-15.5); LYMPHOCYTES % (AUTO) 23.7 % (13-45); MEAN CORPUSCULAR HEMOGLOBIN 30.7 pg (27.0-33.4); MEAN CORPUSCULAR HGB CONC 34.8 g/dL (32.0-36.0); MEAN CORPUSCULAR VOLUME 88 fl (80-97); MONOCYTES % (AUTO) 7.3 % (3-13); PLATELET COUNT 271 10^3/uL (150-450); RED BLOOD COUNT 4.42 10^6/uL (3.72-5.28); RED CELL DISTRIBUTION WIDTH 13.3 % (11.5-14.0); TOTAL CELLS COUNTED % (AUTO) 100 %; WHITE BLOOD COUNT 8.3 10^3/uL (4.0-10.5)
== END 2019-12-02 17:02 | disposition home or self-care (01) ==
LOC: ER 13:46
DX: O03.9 Complete or unspecified spontaneous abortion without complication (principal); Z67.11 Type A blood, Rh negative
CPT/HCPCS: 99283; 86900; 86901; 36415; 86850; 84702; 85025; J2790

== ENCOUNTER 2019-12-16 07:51 | Observation (INO) | payer OTHER, MEDICAID ==
[2019-12-16] MEDS ORDERED: FENTANYL CITRATE INJ/PF 100 MCG/2 ML AMPUL IV ONE ×2 (08:17→12:02)
[2019-12-16] MEDS ORDERED: KETOROLAC TROMETHAMINE INJ/PF 30 MG/1 ML SDV IV ONE (08:17)
[2019-12-16] MEDS ORDERED: ONDANSETRON HCL INJ/PF 4 MG/2 ML SDV IV ONE (08:17)
[2019-12-16 08:29] LABS: ABSOLUTE BASOPHILS # (AUTO) 0.1 10^3/uL (0.0-0.2); ABSOLUTE EOSINOPHILS # (AUTO) 0.4 10^3/uL (0.0-0.6); ABSOLUTE LYMPHOCYTES (AUTO) 2.5 10^3/uL (0.5-4.7); ABSOLUTE MONOCYTES (AUTO) 0.6 10^3/uL (0.1-1.4); ABSOLUTE NEUT (AUTO) 5.4 10^3/uL (1.7-8.2); BASOPHILS % (AUTO) 0.9 % (0-2); EOSINOPHILS % (AUTO) 4.7 % (0-6); HEMATOCRIT 41.2 % (36.0-47.0); LYMPHOCYTES % (AUTO) 27.7 % (13-45); MEAN CORPUSCULAR HEMOGLOBIN 30.2 pg (27.0-33.4); MEAN CORPUSCULAR HGB CONC 33.9 g/dL (32.0-36.0); MEAN CORPUSCULAR VOLUME 89 fl (80-97); MONOCYTES % (AUTO) 7.2 % (3-13); PLATELET COUNT 271 10^3/uL (150-450); RED BLOOD COUNT 4.62 10^6/uL (3.72-5.28); RED CELL DISTRIBUTION WIDTH 13.3 % (11.5-14.0); SEGMENTED NEUTROPHILS % (AUTO) 59.5 % (42-78); TOTAL CELLS COUNTED % (AUTO) 100 %
[2019-12-16 08:48] LABS: ANION GAP 11 (5-19); BLOOD UREA NITROGEN 8 mg/dL (7-20); CALCIUM 9.3 mg/dL (8.4-10.2); CARBON DIOXIDE 23 mmol/L (22-30); CHLORIDE 104 mmol/L (98-107); GLUCOSE 97 mg/dL (75-110); POTASSIUM 4.1 mmol/L (3.6-5.0)
--- NOTE | 2019-12-16 09:05 | ER Document Report ---
ED General - General Chief Complaint: Abdominal Pain Stated Complaint: ABDOMINAL PAIN Time Seen by Provider: 12/16/19 08:06 Notes: 24-year-old female G5 with at least 1 miscarriage and 1 ectopic in the past presents with pain. Abdominal pain left greater than right abrupt onset this morning cannot get comfortable. No nausea. Mild vaginal spotting. Diagnosed with UTI a week ago and was . Had an empty uterus and a beta in the 500 range and was told to follow-up in the ER in 2 days for repeat beta. Was not referred to women's health. Cramping and pain had decreased some, but this morning. The beta a few days ago was still around 600. TRAVEL OUTSIDE OF THE [place] IN LAST 30 DAYS: No - Related Data Allergies/Adverse Reactions: No Known Allergies Allergy (Verified 09/17/18 21:04) Past Medical History - General Information source: Patient - Social History Smoking Status: Never Smoker Frequency of alcohol use: None Drug Abuse: None Family History: Reviewed & Not Pertinent Renal/ Medical History: Denies: Hx Peritoneal Dialysis Musculoskeletal Medical History: Reports Hx Muscle Spasm Past Surgical History: Reports: Hx Appendectomy, Hx Section, Hx Gynecologic Surgery - ectopic - Immunizations Immunizations up to date: Yes Review of Systems - Review of Systems Notes: REVIEW OF SYSTEMS GEN: Denies fever, chills, weight loss ENT: Denies sore throat, nasal discharge, ear pain EYES: Denies blurry vision, eye pain, discharge CV: Denies chest pain, palpitations, edema RESP: Denies cough, shortness of breath, wheezing GI: Abdominal pain a MSK: Denies joint pain/swelling, edema, SKIN: Denies rash, skin lesions LYMPH: Denies swollen glands/lymph nodes NEURO: Denies headache, focal weakness or numbness, dizziness PSYCH: Denies depression, suicidal or homicidal ideation PHYSICAL EXAMINATION General: No acute distress, well-nourished Head: Atraumatic, normocephalic ENT: Mouth normal, oropharynx moist, no exudates or tonsillar enlargement Eyes: Conjunctiva normal, pupils equal, lids normal Neck: No JVD, supple, no guarding CVS: Normal rate, regular rhythm, no murmurs Resp: No resp distress, equal and normal breath sounds bilaterally GI: Tenderness left greater than right lower Ext: No deformities, no edema, normal range of motion in upper and lower ext Back: No CVA or midline TTP Skin: No rash, warm Lymphatic: No lymphadeopathy noted Neuro: Awake, alert. Face symmetric. GCS 15. Physical Exam - Vital signs Vitals: Temp Pulse Resp BP Pulse Ox 98.4 F 111 H 18 127/71 H 98 12/16/19 07:54 12/16/19 07:54 12/16/19 07:54 12/16/19 07:54 12/16/19 07:54 Course - Re-evaluation Re-evalutation: 12/16/19 09:03 Abdominal pain hemodynamically stable but tachycardic in the setting of either miscarriage or ectopic. Suspect ruptured ectopic would be the most likely diagnosis. Bedside ultrasound shows no definite free fluid but a complex left adnexal mass. Sent emergently to ultrasound. Discussed with tach at approximately 9 AM. She did see a left adnexal mass and an empty uterus. Going to measure it and will be read eventually based on this information I have discussed with Dr. aVrghese from [facility] and explicitly expressed my concern for ruptured ectopic which may require operative management. Beta-hCG pending pain meds given IV access obtained. 12/16/19 10:11 10 AM: Dr. Varghese has asked to take the patient to the OR emergently for what she believes is a stable ruptured ectopic. She is been told by the operating room that they cannot fit her in until 6 PM. We had a discussion about this, I expressed that this is unacceptable. She does not know how to get this bumped up so we have asked our charge nurse to call the OR to get this bumped up and it is now in the hands of the nurse manager of maintenance. 12/16/19 14:51 Patient taken to preop. Will be operated on within 1 hour, this is about 11 AM. - Vital Signs Vital signs: Temp Pulse Resp BP Pulse Ox 97.9 F 111 H 20 108/57 L 99 12/16/19 12:09 12/16/19 07:54 12/16/19 12:01 12/16/19 12:00 12/16/19 12:01 - Laboratory Result Diagrams: 12/16/19 08:15 12/16/19 08:15 Laboratory results interpreted by me: 12/16/19 12/16/19 08:15 08:28 Beta HCG, Quant 2619.50 H Crossmatch See Detail - Diagnostic Test Radiology reviewed: Image reviewed, Reports reviewed - EKG Interpretation by Me EKG shows normal: Sinus rhythm Rate: Normal Rhythm: NSR When compared to previous EKG there are: Previous EKG unavailable - No ST or T T wave changes Critical Care Note - Critical Care Note Total time excluding time spent on procedures (mins): 71 Comments: The above patient is critically ill. Not including procedures, but including direct re-evaluations, speaking with patient and/or consultants, interpreting results, and documenting, I spent the total amount of minute listed listed above on critical care time Discharge - Discharge Clinical Impression: Ectopic Qualifiers: Location of ectopic : other location Intrauterine status: without intrauterine Qualified Code(s): O00.80 - Other ectopic without intrauterine Condition: Critical Disposition: ADMITTED INPATIENT Admitting Provider: [facility] Unit Admitted: Post
--- NOTE | 2019-12-16 09:22 | RADIOLOGY REPORT (SQ) ---
EXAM DESCRIPTION: U/S OB TRANSVAGINAL W/O DOP IMAGES COMPLETED DATE/TIME: 12/16/2019 9:04 am REASON FOR STUDY: s/p miscarriage,e r/o retained POC COMPARISON: 11/30/2019. TECHNIQUE: Transvaginal static and realtime grayscale images acquired of the pelvis. Additional kasie cted spectral and color Doppler images recorded. All images stored on PACs. CLINICAL AGE: Not available. BHCG: Pending. LIMITATIONS: None. FINDINGS: UTERUS: No visualized intrauterine . No contents within the endometrial cavity. RIGHT ADNEXA: Normal ovary with normal vascular flow. No adnexal free fluid. No adnexal masses. LEFT ADNEXA: Complex adnexal mass, measuring 4.2 x 4.3 x 4.6 cm. No adnexal free fluid. FREE FLUID: Small amount of complex fluid in the posterior cul-de-sac. OTHER: No other significant finding. IMPRESSION: NO VISUALIZED INTRA- OR EXTRAUTERINE . NO CONTENTS WITHIN THE ENDOMETRIAL CAVI TY. COMPLEX MASS IN THE LEFT ADNEXAL, POSSIBLY A HEMORRHAGIC CYST. SMALL AMOUNT OF COMPLEX FLUID IN THE POSTERIOR CUL-DE-SAC. bHCG LEVEL NOT AVAILABLE FOR CORRELATION WITH US FINDINGS. ECTOPIC CANNOT BE EXCLUDED. FOLLOW-UP ULTRASOUND AND SERIAL BHCG LEVELS STRONGLY RECOMMENDED TO ACCURATELY ASSESS STATU S. TECHNICAL DOCUMENTATION: JOB ID: [id number] 2010 [employer]- All Rights Reserved Reading location - IP/workstation name: [email or web address]
--- NOTE | 2019-12-16 09:42 | PDOC H&P ---
History of Present Illness Admission Date/PCP: 12/16/2019 Patient complains of: Acute abdominal pain History of Present Illness: MALIA REYES is a 24 year old [id number] at approx 8.5 wks EGA by LMP of 10/16/2019 who woke this morning with acute abdominal pain. She reports pain in pelvis and does not radiate. SHarp. Severity 10/10 at time. She denies associated symptoms of nausea, vomiting, fever, chills, shortness of breath, chest pain, hematuria or dysuria. Reports bleeding vaginally over last 2 weeks and had US done both on 11/30/2019 and today. Neither US showed and Intrauterine and today's US is showing a complex adnexal mass with small amount of complex free fluid in the pelvis. Since arrival in ED, VSS and she rates pain now at 3/10 after fentanyl 50mcg and toradol . Past Surgical History Past Surgical History: Reports: Appendectomy, Section Social History Smoking Status: Never Smoker Frequency of Alcohol Use: None Hx Recreational Drug Use: No Drugs: None Hx Prescription Drug Abuse: No Family History Family History: Reviewed & Not Pertinent Parental Family History Reviewed: Yes Children Family History Reviewed: Yes Sibling(s) Family History Reviewed.: Yes Medication/Allergy Home Medications: Nitrofurantoin Monohyd/M-Cryst [Macrobid 100 mg Capsule] 100 mg PO BID #20 cap 11/30/19 Allergies/Adverse Reactions: No Known Allergies Allergy (Verified 09/17/18 21:04) Review of Systems Constitutional: ABSENT: chills, fever(s), headache(s), weight gain, weight loss Cardiovascular: ABSENT: chest pain, dyspnea on exertion, edema, orthropnea, palpitations Respiratory: ABSENT: cough, hemoptysis Gastrointestinal: PRESENT: as per HPI, abdominal pain Genitourinary: ABSENT: dysuria, hematuria Integumentary: ABSENT: rash, wounds Neurological: ABSENT: abnormal gait, abnormal speech, confusion, dizziness, focal weakness, syncope Psychiatric: ABSENT: anxiety, depression, homidical ideation, suicidal ideation Physical Exam - Physical Exam Vital Signs: Temp Pulse Resp BP Pulse Ox 98.4 F 111 H 18 127/71 H 98 12/16/19 07:54 12/16/19 07:54 12/16/19 07:54 12/16/19 07:54 12/16/19 07:54 Intake & Output 12/15/19 12/16/19 12/17/19 06:59 06:59 06:59 Weight 94.1 kg General appearance: PRESENT: no acute distress, cooperative Respiratory exam: PRESENT: clear to auscultation caleb Cardiovascular exam: PRESENT: RRR, +S1, +S2 Pulses: PRESENT: normal radial pulses Vascular exam: PRESENT: normal capillary refill GI/Abdominal exam: PRESENT: hypoactive bowel sounds, soft, tenderness - LLQ to mild palpation. Guarding positive. No rebound currently Extremities exam: PRESENT: full ROM. ABSENT: calf tenderness, clubbing, pedal edema Neurological exam: PRESENT: alert, awake, oriented to person, oriented to place, oriented to time, oriented to situation, CN II-XII grossly intact. ABSENT: motor sensory deficit Psychiatric exam: PRESENT: appropriate affect, normal mood. ABSENT: homicidal ideation, suicidal ideation - Gynecological Exam Labia: normal Introitus: normal - Small amount of blood on latoya-pad Perineum: normal Result Laboratory Results: 12/16/19 08:15 12/16/19 08:15 12/16/19 12/16/19 08:15 08:15 WBC 9.0 RBC 4.62 Hgb 14.0 Hct 41.2 MCV 89 MCH 30.2 MCHC 33.9 RDW 13.3 Plt Count 271 Seg Neutrophils % 59.5 Sodium 137.6 Potassium 4.1 Chloride 104 Carbon Dioxide 23 Anion Gap 11 BUN 8 Creatinine 0.68 Est GFR ( Amer) > 60 Glucose 97 Calcium 9.3 Impressions: Obstetrics Ultrasound 12/16/19 08:06 IMPRESSION: NO VISUALIZED INTRA- OR EXTRAUTERINE . NO CONTENTS WITHIN THE ENDOMETRIAL CAVITY. COMPLEX MASS IN THE LEFT ADNEXAL, POSSIBLY A HEMORRHAGIC CYST. SMALL AMOUNT OF COMPLEX FLUID IN THE POSTERIOR CUL-DE-SAC. bHCG LEVEL NOT AVAILABLE FOR CORRELATION WITH US FINDINGS. ECTOPIC CANNOT BE EXCLUDED. FOLLOW-UP ULTRASOUND AND SERIAL BHCG LEVELS STRONGLY RECOMMENDED TO ACCURATELY ASSESS STATUS. Assessment & Plan - Diagnosis (1) Ectopic Qualifiers: Location of ectopic : other location Intrauterine status: without intrauterine Qualified Code(s): O00.80 - Other ectopic without intrauterine Is this a current diagnosis for this admission?: Yes (2) Abdominal pain Qualifiers: Abdominal location: left lower quadrant Qualified Code(s): R10.32 - Left lower quadrant pain Is this a current diagnosis for this admission?: Yes - Time Critical Time spent with patient: 15-24 minutes Medications reviewed and adjusted accordingly: Yes Anticipated Discharge Disposition: Home, Self Care Anticipated Discharge Timeframe: within 24 hours - Plan Summary Plan Summary: 24 year old female at approx 8.5 wks EGA by LMP of 10/16/2019 who woke this morning with acute abdominal pain: ectopic left adnexa: likely ruptured -VSS presently\ -Hgb 14, type and screen pending -Exam positive for guarding in LLQ. -US films/report reviewed. Complex fluid in pelvis likely blood and complex structure left adnexa likely ectopic of left fallopian tube. -Discussed findings with patient. Once Quant HCG is > 2000 would expect to see something in uterus and nothing seen. Discussed that by 8.5 weeks would expect to see IUP if not ectopic. Discussed Ectopic . She has hx methotrexate x1 several years ago but unaware of location of that ectopic. She has one child. D/t complex fluid and findings of ectopic, recommend diagnostic laparoscopy with removal of ectopic and blood in pelvis. Risks and benefits discussed. Consent signed. WIll notifiy OR staff and anesthesia. No Rapid covid tests available presently
[2019-12-16] MEDS ORDERED: RINGERS SOLUTION,LACTATED 1,000 ML IV ONE (10:15)
[2019-12-16] MEDS ORDERED: DEXTROSE 50%-WATER 25 GM/50 ML DISP.SYRIN IV PRN ×2 (10:41)
[2019-12-16] MEDS ORDERED: GLUCAGON,HUMAN RECOMB 1 MG INJ SUBCUT PRN (10:41)
[2019-12-16] MEDS ORDERED: DEXTROSE 40% GEL 15 GM TUBE PO PRN ×2 (10:41)
[2019-12-16] MEDS ORDERED: RINGERS SOLUTION,LACTATED 1,000 ML IV PRN (10:43)
[2019-12-16] MEDS ORDERED: KETOROLAC TROMETHAMINE 60 MG/2 ML SDV ONE (12:32)
[2019-12-16] MEDS ORDERED: FENTANYL CITRATE INJ/PF 100 MCG/2 ML AMPUL ONE ×2 (12:33→13:32)
[2019-12-16] MEDS ORDERED: MIDAZOLAM 2 MG/2 ML INJ ONE (12:33)
[2019-12-16] MEDS ORDERED: ONDANSETRON HCL INJ/PF 4 MG/2 ML SDV ONE (12:33)
[2019-12-16] MEDS ORDERED: PROPOFOL INJ 200 MG/20 ML VIAL IV ONE ×2 (12:33→13:33)
[2019-12-16] MEDS ORDERED: DEXAMETHASONE SOD PHOSPHATE INJ 4 MG/1 ML VIAL ONE (13:50)
[2019-12-16] MEDS ORDERED: MORPHINE SULFATE 10 MG/ML INJ IV PRN (13:59)
[2019-12-16] MEDS ORDERED: DIPHENHYDRAMINE HCL 50 MG/ML VIAL IV PRN (13:59)
[2019-12-16] MEDS ORDERED: MEPERIDINE HCL/PF INJ 25 MG/1 ML DISP.SYRIN IV PRN (13:59)
[2019-12-16] MEDS ORDERED: PROMETHAZINE HCL INJ 25 MG/1 ML VIAL IV PRN ×2 (13:59→16:17)
[2019-12-16] MEDS ORDERED: FENTANYL CITRATE INJ/PF 100 MCG/2 ML AMPUL IV PRN ×3 (13:59)
[2019-12-16] MEDS: MIDAZOLAM 2 MG/2 ML INJ ONE ×2 (16:04→16:15)
[2019-12-16] MEDS ORDERED: PROMETHAZINE HCL INJ 25 MG/1 ML VIAL ONE (16:07)
[2019-12-16] MEDS ORDERED: OXYCODONE-ACETAMINOPHEN 5-325 MG TABLET PO PRN (16:17)
[2019-12-16] MEDS ORDERED: NORMAL SALINE 1000 ML 1,000 ML IV PRN (16:17)
[2019-12-16] MEDS ORDERED: DEXTROSE 5%-LACTATED RINGERS 1,000 ML IV PRN (16:17)
[2019-12-16] MEDS ORDERED: HYDROMORPHONE HCL INJ/PF 2 MG/ML AMPULE IM PRN (16:17)
--- NOTE | 2019-12-16 16:17 | Operative Report ---
Operative Report DATE OF SURGERY: 12/16/19 PREOPERATIVE DIAGNOSIS: Acute abdominal pain. Ectoptic . Hemoperiton eum POSTOPERATIVE DIAGNOSIS: Same as above with addition of. Ruptured left ectopic with origin in left fallopian tube. Adhesions anterior abdominal wall and omentum OPERATION: Diagnostic laparoscopy with removal of ectopic tissue and left distal fallopian tube which appeared to still have ectopic tissue and was quite friable. SURGEON: ROSEMARIE ADAMSON ANESTHESIA: GA TISSUE REMOVED OR ALTERED: Left distal fallopian tube and ectopic tissue COMPLICATIONS: None ESTIMATED BLOOD LOSS: 200cc INTRAOPERATIVE FINDINGS: Ruptured ectopic from left fallopian tube and hemoperitoneum PROCEDURE: IV fluids: per anesthesia record Urinary output: 100 cc Findings: Normal-appearing uterus, right fallopian tube and ovaries. Left fallopian tube enlarged, friable and clotted blood /tissue adhering to it in the area of the mesosalpinx on the left. Approximately 200cc dark clotted blood in pelvis Position: To recovery room in stable condition Description of procedure: The patient was taken to the operating room after general anesthesia was administered and found to be adequate. She was then placed on the OR table in the dorsal lithotomy position. The Patient was prepped and draped in usual sterile fashion. Timeout was taken. A Muñoz retractor was used as well as a weighted speculum to visualize the cervix. The anterior lip of the cervix was then grasped with a single tooth tenaculum and an acorn uterine manipulator was placed. At this time attention was turned of the patient's abdomen and sterile gloves were donned a 1 cm infra umbilical incision was made horizontally and carried down to the level of the rectus fascia. The rectus fascia was then grasped with 2 Ortiz clamps elevated and incised with Gerardo scissors. A digital sweep was done but not able to enter the peritoneum. SCar tissue dense in this area. After a second failed attempt to enter ther periotoneum, a veress needle was used in the RUQ mid clavicular line after tenting skin in this area with two towel clamps. Veress needle not long enough to penetrate the peritoneum. Attention was turned back to the infraumbilical region and further dissection done until a rodriguez of gas noted. A digital sweep done again noting entry into the peritoneum at this time. The fascia was tagged bilaterally with 0-vicryl suture. A #10 Muse trocar was positioned and CO2 gas was used to insufflate the abdomen to a quantity sufficient for the laparoscopy. The laparoscope was inserted and a survey was done of the abdomen pictures were obtained. Findings noted as above. Blood was evacuated from the pelvis with a suction domestic laundry worker. Ectopic could be seen on the left. The left fallopian tube was identified and traced to its fimbriated end. The mesosalpinx appeared friable and with blood-area of rupture along the left fallopian tube. The enlarged portion of the left fallopian tube was grasped and using the ligasure the effected portion of the distal tube was removed in a segemetal fashion first along the mesosalpinx and then cross clamping and transecting the left fallopian tube. The left ovary was noted to be normal. Good blanching and hemostasis was noted. The right fallopian tube and ovary appeared normal as did the uterus. Blood was evacuated from the pelvis and hemostasis was noted. Pictures were obtained. At this point the procedure was terminated. All instrument removed from the patient's abdomen and CO2 gas was allowed to escape. The infraumbilical port was removed. The fascia was closed with 0 Vicryl suture. The skin was closed with 3-0 Monocryl in a series of interrupted stitiches. The skin incision was then clean dried and Dermabond was applied over the skin incision. All instrument sponge and needle counts were correct x3 for the procedure the patient tolerated the procedure well. She will proceed to recovery room in stable condition
[2019-12-16] MEDS ORDERED: IBUPROFEN 800 MG TABLET PO SCH (16:30)
--- NOTE | 2019-12-16 17:09 | EKG REPORT ---
SEVERITY:- NORMAL ECG - SINUS RHYTHM : Confirmed by: Joanna Rubalcava MD 16-Dec-2019 17:08:48
[2019-12-16 19:54] LABS: HEMATOCRIT 40.8 % (36.0-47.0); HEMOGLOBIN 13.4 g/dL (12.0-15.5); MEAN CORPUSCULAR HEMOGLOBIN 29.9 pg (27.0-33.4); MEAN CORPUSCULAR VOLUME 91 fl (80-97); PLATELET COUNT 270 10^3/uL (150-450); RED CELL DISTRIBUTION WIDTH 13.6 % (11.5-14.0); WHITE BLOOD COUNT 14.1 10^3/uL (4.0-10.5)
[2019-12-16] MEDS: OXYCODONE-ACETAMINOPHEN 5-325 MG TABLET PO PRN (21:38)
[2019-12-17] MEDS ORDERED: PHENOL/SODIUM PHENOLATE 100 SPRAY/177 ML BOTTLE PO PRN (00:13)
[2019-12-17] MEDS: OXYCODONE-ACETAMINOPHEN 5-325 MG TABLET PO PRN ×2 (02:21→08:33)
--- NOTE | 2019-12-17 07:27 | PDOC DISCHARGE SUMMARY ---
Impression - Admit/DC Date/PCP Admission Date/Primary Care Provider: 12/16/19 09:32 Discharge Date: 12/17/19 - Discharge Diagnosis (1) Ectopic Is this a current diagnosis for this admission?: Yes (2) Abdominal pain Is this a current diagnosis for this admission?: Yes - Additional Information Resuscitation Status: Full Code Discharge Diet: Regular Discharge Activity: Activity As Tolerated Prescriptions: Docusate Sodium [Colace 100 mg Capsule] 100 mg PO DAILY #30 capsule Ibuprofen [Motrin 800 mg Tablet] 800 mg PO Q8HP 15 Days #30 tablet Hydrocodone/Acetaminophen [[place] 5-325 mg Tablet] 1 tab PO Q4H PRN #20 tablet PRN Reason: Home Medications: Docusate Sodium [Colace 100 mg Capsule] 100 mg PO DAILY #30 capsule 12/17/19 Hydrocodone/Acetaminophen [[place] 5-325 mg Tablet] 1 tab PO Q4H PRN #20 tablet 12/17/19 Ibuprofen [Motrin 800 mg Tablet] 800 mg PO Q8HP 15 Days #30 tablet 12/17/19 History of Present Illiness History of Present Illness: MALIA REYES is a 24 year old [id number] who was approx 8.5 wks EGA by LMP of 10/16/2019 came in with pain, vaginal bleeding. Pos Quant HCG and no IUP> Abnormal adnexal mass noted and was dx with ruptured ectopic as complex free fluid in the pelvis Diagnostic laparoscopy with removal left fallopian tube and ectopic was done. Her blood count was stable afterwards . She extubated her self with balloon inflated and was kept overnight for pain management from surgery and to manage airway Stable this am. No issues. Pain well managed. Tolerating PO well. Voiding. Incisions dry and intact. No difficulty breathing Physical Exam - Physical Exam Vital Signs: Temp Pulse Resp BP Pulse Ox 98.2 F 78 18 109/56 L 99 12/17/19 04:41 12/17/19 05:43 12/17/19 04:41 12/17/19 05:43 12/17/19 04:41 Intake & Output 12/16/19 12/17/19 12/18/19 06:59 06:59 06:59 Intake Total 3227 Output Total 115 Balance 3112 Weight 94.1 kg - Gynecological Exam Labia: normal Introitus: normal - Small amount of blood on latoya-pad Perineum: normal Results Laboratory Results: WBC 14.1 10^3/uL (4.0-10.5) H 12/16/19 19:41 RBC 4.50 10^6/uL (3.72-5.28) 12/16/19 19:41 Hgb 13.4 g/dL (12.0-15.5) 12/16/19 19:41 Hct 40.8 % (36.0-47.0) 12/16/19 19:41 MCV 91 fl (80-97) 12/16/19 19:41 MCH 29.9 pg (27.0-33.4) 12/16/19 19:41 MCHC 33.0 g/dL (32.0-36.0) 12/16/19 19:41 RDW 13.6 % (11.5-14.0) 12/16/19 19:41 Plt Count 270 10^3/uL (150-450) 12/16/19 19:41 Lymph % (Auto) 27.7 % (13-45) 12/16/19 08:15 [place] % (Auto) 7.2 % (3-13) 12/16/19 08:15 Eos % (Auto) 4.7 % (0-6) 12/16/19 08:15 Baso % (Auto) 0.9 % (0-2) 12/16/19 08:15 Absolute Neuts (auto) 5.4 10^3/uL (1.7-8.2) 12/16/19 08:15 Absolute Lymphs (auto) 2.5 10^3/uL (0.5-4.7) 12/16/19 08:15 Absolute Monos (auto) 0.6 10^3/uL (0.1-1.4) 12/16/19 08:15 Absolute Eos (auto) 0.4 10^3/uL (0.0-0.6) 12/16/19 08:15 Absolute Basos (auto) 0.1 10^3/uL (0.0-0.2) 12/16/19 08:15 Seg Neutrophils % 59.5 % (42-78) 12/16/19 08:15 Sodium 137.6 mmol/L (137-145) 12/16/19 08:15 Potassium 4.1 mmol/L (3.6-5.0) 12/16/19 08:15 Chloride 104 mmol/L (98-107) 12/16/19 08:15 Carbon Dioxide 23 mmol/L (22-30) 12/16/19 08:15 Anion Gap 11 (5-19) 12/16/19 08:15 BUN 8 mg/dL (7-20) 12/16/19 08:15 Creatinine 0.68 mg/dL (0.52-1.25) 12/16/19 08:15 Est GFR ( Amer) > 60 (>60) 12/16/19 08:15 Est GFR (MDRD) Non-Af > 60 (>60) 12/16/19 08:15 Glucose 97 mg/dL (75-110) 12/16/19 08:15 Calcium 9.3 mg/dL (8.4-10.2) 12/16/19 08:15 Beta HCG, Quant 2619.50 mIU/mL (0.0-6.15) H 12/16/19 08:15 Total Beta HCG POSITIVE (NEGATIVE) 12/16/19 08:15 Blood Type O NEGATIVE 12/16/19 08:28 Antibody Screen POSITIVE 12/16/19 08:28 Antibody Identification RHOGAM INDUCED ANTI-D 12/16/19 08:28 Crossmatch See Detail 12/16/19 08:28 Impressions: Obstetrics Ultrasound 12/16/19 08:06 IMPRESSION: NO VISUALIZED INTRA- OR EXTRAUTERINE . NO CONTENTS WITHIN THE ENDOMETRIAL CAVITY. COMPLEX MASS IN THE LEFT ADNEXAL, POSSIBLY A HEMORRHAGIC CYST. SMALL AMOUNT OF COMPLEX FLUID IN THE POSTERIOR CUL-DE-SAC. bHCG LEVEL NOT AVAILABLE FOR CORRELATION WITH US FINDINGS. ECTOPIC CANNOT BE EXCLUDED. FOLLOW-UP ULTRASOUND AND SERIAL BHCG LEVELS STRONGLY RECOMMENDED TO ACCURATELY ASSESS STATUS. Stroke Is this a Stroke Patient?: No Acute Heart Failure - Is this a Heart Failure Patient?: No
[2019-12-17 08:05] VITALS: BP 103/47
[2019-12-17 08:12] LABS: ALBUMIN 4.1 g/dL (3.5-5.0); ALKALINE PHOSPHATASE 59 U/L (38-126); ANION GAP 9 (5-19); ASPARTATE AMINO TRANSFERASE 23 U/L (14-36); BILIRUBIN,DIRECT 0.3 mg/dL (0.0-0.4); BILIRUBIN,TOTAL 0.4 mg/dL (0.2-1.3); BLOOD UREA NITROGEN 6 mg/dL (7-20); CALCIUM 8.8 mg/dL (8.4-10.2); CARBON DIOXIDE 23 mmol/L (22-30); CHLORIDE 106 mmol/L (98-107); GLUCOSE 104 mg/dL (75-110); POTASSIUM 4.2 mmol/L (3.6-5.0); TOTAL PROTEIN 6.8 g/dL (6.3-8.2)
[2019-12-17] MEDS ORDERED: DOCUSATE SODIUM 100 MG CAPSULE PO SCH (10:00)
== END 2019-12-17 09:15 | disposition home or self-care (01) ==
LOC: ER 07:51 → INTOOBSV 09:32 → EH 09:32 → 2N 16:59
PROVIDERS: ADMIT Obstetrics & Gynecology; ATTEND Obstetrics & Gynecology
DX: O00.102 Left tubal pregnancy without intrauterine pregnancy (principal); K66.1 Hemoperitoneum; R00.0 Tachycardia, unspecified; Z87.59 Personal history of other complications of pregnancy, childbirth and the puerperium; Z90.49 Acquired absence of other specified parts of digestive tract; Z87.440 Personal history of urinary (tract) infections
CPT/HCPCS: 59151; 93005; 99285; 96374; 96375; 86900; 86901; 36415 ×2; 86870; 86850; 86922; 84702; 85025; 80048; 80053; 86920; 88305 ×2; 76817; 93010; 99140; 00840; G0378 ×2; J2250; J1100; J1885 ×2; J3010; J2550; J2405; J7120; J2704; 840; J3490

== ENCOUNTER 2020-03-12 16:10 | Emergency (ER) | payer OTHER, MEDICAID ==
--- NOTE | 2020-03-12 17:51 | ER Document Report ---
Entered by ANAT CASTELLON SCRIBE 03/12/20 1734 Acting as scribe for:ROMARIO KRUSE DO ED General - General Stated Complaint: DIFFICULTY BREATHING Time Seen by Provider: 03/12/20 17:00 Mode of Arrival: Ambulatory Information source: Patient Notes: This 24-year-old female patient presents to the emergency department today with complaints of shortness of breath which began yesterday. Patient states she has a history of anxiety and it kind of feels like a panic attack but she "does not feel panicky" so she isn't sure. Patient states she has no concern for COVID-19 and does not think she has it. Patient denies a cough, fevers, nausea, vomiting, diarrhea, sick contacts, using control, leg pain or swelling. Patient mentions that she has chronic upper back pain and she thinks that her muscles are tight which is causing her to be short of breath. TRAVEL OUTSIDE OF THE [place] IN LAST 30 DAYS: No - Related Data Allergies/Adverse Reactions: No Known Allergies Allergy (Verified 03/12/20 17:49) Past Medical History - General Information source: Patient - Social History Smoking Status: Current Every Day Smoker Cigarette use (# per day): No - vape Frequency of alcohol use: None Drug Abuse: None Lives with: Family Family History: Reviewed & Not Pertinent Musculoskeletal Medical History: Reports Hx Muscle Spasm Psychiatric Medical History: Reports: Hx Depression Past Surgical History: Reports: Hx Appendectomy, Hx Section, Hx Gynecologic Surgery - ectopic - Immunizations Immunizations up to date: Yes Review of Systems - Review of Systems Constitutional: No symptoms reported EENT: No symptoms reported Cardiovascular: No symptoms reported Respiratory: See HPI, Short of breath Gastrointestinal: No symptoms reported Genitourinary: No symptoms reported Female Genitourinary: No symptoms reported Musculoskeletal: See HPI, Back pain. denies: Leg swelling, Ankle swelling Skin: No symptoms reported Hematologic/Lymphatic: No symptoms reported Neurological/Psychological: See HPI, Anxiety -: Yes All other systems reviewed and negative Physical Exam - Vital signs Vitals: Temp 98.5 F 03/12/20 16:11 - Notes Notes: Physical Exam: General: Alert, appears well. HEENT: Normocephalic. Atraumatic. PERRL. Extraocular movements intact. Oropharynx clear. Neck: Supple. Non-tender. Respiratory: No respiratory distress. Clear and equal breath sounds bilaterally. Cardiovascular: Regular rate and rhythm. Abdominal: Normal Inspection. Non-tender. No distension. Normal Bowel Sounds. Back: No gross abnormalities. Extremities: Moves all four extremities. Upper extremities: Normal inspection. Normal ROM. Lower extremities: Normal inspection. No edema. Normal ROM. Neurological: Normal cognition. AAOx4. Normal speech. Psychological: Normal affect. Normal Mood. Skin: Warm. Dry. Normal color. Course - Re-evaluation Re-evalutation: 03/12/20 17:48 MDM 24 year old with fear for sob. No tschypnea or chest pain. Just worried, and no fever. No exertional sob. Discussed sob and ? of xray and she does not want that. Exam is reassuring. Discussed return here precautions. - Vital Signs Vital signs: Temp Pulse Resp BP Pulse Ox 98.5 F 100 18 139/71 H 99 03/12/20 16:31 03/12/20 16:31 03/12/20 16:31 03/12/20 16:31 03/12/20 16:31 Discharge - Discharge Clinical Impression: Anxiety about health Dyspnea Qualifiers: Dyspnea type: unspecified Qualified Code(s): R06.00 - Dyspnea, unspecified Condition: Stable Disposition: HOME, SELF-CARE Instructions: Anxiety ([facility]), Family Physicians / Practices Additional Instructions: See your doctor or referral doctor in follow up. Please return here for chest pain, shortness of breath or other concerns. I personally performed the services described in the documentation, reviewed and edited the documentation which was dictated to the scribe in my presence, and it accurately records my words and actions.
[2020-03-12 18:03] VITALS: BP 109/61
== END 2020-03-12 18:03 | disposition home or self-care (01) ==
LOC: ER 16:10
DX: F41.9 Anxiety disorder, unspecified (principal); R06.02 Shortness of breath; F17.290 Nicotine dependence, other tobacco product, uncomplicated; M54.9 Dorsalgia, unspecified; G89.29 Other chronic pain
CPT/HCPCS: 99282

== ENCOUNTER 2020-03-21 03:04 | Emergency (ER) | payer OTHER, MEDICAID ==
[2020-03-21 03:11] VITALS: BP 118/71
== END 2020-03-21 04:55 | disposition left against medical advice (07) ==
LOC: ER 03:04
DX: Z53.21 Procedure and treatment not carried out due to patient leaving prior to being seen by health care provider (principal)